=== PATIENT | female | born 2000 | race Caucasian/White ===

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

== ENCOUNTER 2021-06-22 18:48 | Emergency (ER) | payer BC ==
[2021-06-22 18:52] VITALS: TEMP 98.8
[2021-06-22 19:24] VITALS: RESP 18
[2021-06-22] MEDS ORDERED: SODIUM CHLORIDE 0.9% 1,000 ML IV STA (20:28)
[2021-06-22] MEDS ORDERED: ONDANSETRON 4 MG/2 ML VIAL IVP STA (20:28)
[2021-06-22 21:01] LABS: Basophils % (A) 0 %; Eosinophils # (A) 0.1 k/uL (0-0.7); Eosinophils % (A) 1 %; HCT 42.6 % (34.0-46.0); HGB 13.8 gm/dL (11.4-16.0); Lymphocytes # (A) 0.6 k/uL (1.0-4.8); Lymphocytes % (A) 5 %; MCH 26.7 pg (25.0-35.0); MCHC 32.3 g/dL (31.0-37.0); MCV 82.6 fL (80.0-100.0); Mean Platelet Volume 8.1; Monocytes # (A) 0.5 k/uL (0-1.0); Monocytes % (A) 4 %; Neutrophils # (A) 11.1 k/uL (1.3-7.7); Neutrophils % (A) 90 %; Platelet Count 207 k/uL (150-450); RBC 5.16 m/uL (3.80-5.40); RDW 14.5 % (11.5-15.5); WBC 12.4 k/uL (3.8-10.6)
[2021-06-22 21:10] LABS: ALT 26 U/L (4-34); AST 30 U/L (14-36); African American GFR (CKD) >90 (>60 ml/min/1.73 sqM); Albumin 4.5 g/dL (3.5-5.0); Alkaline Phosphatase 130 U/L (38-126); Anion Gap 13 mmol/L; Blood Urea Nitrogen 13 mg/dL (7-17); Calcium 9.3 mg/dL (8.4-10.2); Carbon Dioxide 22 mmol/L (22-30); Chloride 104 mmol/L (98-107); Glucose 107 mg/dL (74-99); Lipase 77 U/L (23-300); Non-African American GFR(CKD) >90 (>60 ml/min/1.73 sqM); Potassium 4.4 mmol/L (3.5-5.1); Sodium 139 mmol/L (137-145); Total Bilirubin 0.8 mg/dL (0.2-1.3); Total Protein 8.7 g/dL (6.3-8.2)
[2021-06-22 22:17] LABS: Amorphous Sediment,Urine Occasional /hpf; Appearance,Urine Cloudy (Clear); Bilirubin,Urine Negative (Negative); Blood,Urine Negative (Negative); Color,Urine Yellow; Glucose,Urine (UA) Negative (Negative); Ketones,Urine Trace (Negative); Leukocyte Esterase,Urine Negative (Negative); Mucus,Urine Many /hpf; Nitrite,Urine Negative (Negative); Protein,Urine 1+ (Negative); RBC,Urine 2 /hpf (0-5); Specific Gravity,Urine 1.029 (1.001-1.035); Squamous Epithelial Cell,Urine 15 /hpf (0-4); Urobilinogen,Urine <2.0 mg/dL (<2.0); WBC,Urine 2 /hpf (0-5)
--- NOTE | 2021-06-22 23:05 | XR ---
EXAMINATION TYPE: XR chest 2V DATE OF EXAM: 06/22/2021 COMPARISON: NONE HISTORY: Chest pain TECHNIQUE: 2 views FINDINGS: There is no heart failure nor confluent pneumonic infiltrate. Heart and mediastinum are nor mal. There is no pleural effusion. Bony thorax is intact. IMPRESSION: No cardiopulmonary disease.
[2021-06-22] MEDS ORDERED: KETOROLAC 15 MG/ML 1 ML VIAL IVP STA (23:45)
[2021-06-22 23:47] VITALS: PULSE 88
--- NOTE | 2021-06-23 00:20 | ED ---
General Adult HPI - General Chief complaint: Nausea/Vomiting/Diarrhea Stated complaint: vomiting blood/chest pain Time Seen by Provider: 06/22/21 19:58 Source: patient, RN notes reviewed Mode of arrival: ambulatory Limitations: no limitations - History of Present Illness Initial comments: 21-year-old female presents to the emergency department for evaluation of nausea, vomiting, and diarrhea, onset last night. Complains of epigastric pain and chest tightness, onset this evening. Has not taken anything to treat her symptoms. Uncertain of whether or not she has had a fever. Denies any known sick contacts. No cough, congestion, nasal drainage, shortness of breath, difficulty breathing, dysuria, or hematuria. - Related Data Home Medications Medication Instructions Recorded Confirmed Citalopram Hydrobromide [CeleXA] 20 mg PO HS 06/22/21 06/22/21 Ibuprofen [Motrin Ib] 200 mg PO Q8H PRN 06/22/21 06/22/21 LORazepam [Ativan] 1 mg PO BID PRN 06/22/21 06/22/21 Melatonin 5 - 10 mg PO HS PRN 06/22/21 06/22/21 Multivit-Min/Folic Acid/Biotin 133.3 mcg PO DAILY 06/22/21 06/22/21 [Hair, Skin and Nails Softgel] Naproxen Sodium [Aleve] 220 mg PO DAILY PRN 06/22/21 06/22/21 Omeprazole Magnesium [PriLOSEC OTC] 20 mg PO DAILY PRN 06/22/21 06/22/21 Previous Rx's Medication Instructions Recorded Ondansetron Odt [Zofran Odt] 4 mg PO Q8HR PRN #10 tab 06/23/21 Allergies Allergy/AdvReac Type Severity Reaction Status Date / Time Sulfa (Sulfonamide Allergy Severe Anaphylaxis Verified 06/22/21 20:42 Antibiotics) acetaminophen [From Tylenol] Allergy Anaphylaxis Verified 06/22/21 20:42 sulfamethoxazole Allergy Anaphylaxis Verified 06/22/21 20:42 [From Bactrim] trimethoprim [From Bactrim] Allergy Anaphylaxis Verified 06/22/21 20:42 Review of Systems ROS Statement: Those systems with pertinent positive or pertinent negative responses have been documented in the HPI. ROS Other: All systems not noted in ROS Statement are negative. Past Medical History Past Medical History: No Reported History History of Any Multi-Drug Resistant Organisms: None Reported Past Surgical History: No Surgical Hx Reported Additional Past Surgical History / Comment(s): wisdom teeth Past Psychological History: No Psychological Hx Reported Smoking Status: Never smoker Past Alcohol Use History: Occasional Past Drug Use History: None Reported General Exam Limitations: no limitations (Well-developed, well-nourished female in no acute distress. Initial temperature 98.8, pulse 97, respirations 22, blood pressure 161/100, pulse ox 97% on room air.) General appearance: alert, in no apparent distress ENT exam: Present: normal oropharynx, mucous membranes moist Neck exam: Present: normal inspection, full ROM. Absent: tenderness, meningismus, lymphadenopathy Respiratory exam: Present: normal lung sounds bilaterally. Absent: respiratory distress, wheezes, rales, rhonchi, stridor Cardiovascular Exam: Present: regular rate, normal rhythm, normal heart sounds. Absent: systolic murmur, diastolic murmur, rubs, gallop, clicks GI/Abdominal exam: Present: soft, normal bowel sounds. Absent: distended, tenderness, guarding, rebound, rigid Neurological exam: Present: alert, oriented X3 Psychiatric exam: Present: normal affect, normal mood Skin exam: Present: warm, dry, intact Course Vital Signs 06/22/21 06/22/21 06/22/21 18:49 19:22 22:00 Temperature 98.8 F Pulse Rate 97 106 H 92 Respiratory 22 18 18 Rate Blood Pressure 161/100 140/99 142/92 O2 Sat by Pulse 97 97 98 Oximetry 06/22/21 06/23/21 23:45 00:28 Temperature Pulse Rate 88 88 Respiratory 18 18 Rate Blood Pressure 148/95 142/90 O2 Sat by Pulse 98 98 Oximetry Medical Decision Making - Medical Decision Making 21-year-old female with no significant past medical history presents to the emergency department for evaluation of nausea, vomiting, and diarrhea. Upon e xam, patient does appear to be feeling somewhat poorly though is in no acute distress. Vital signs are stable. Patient is afebrile and nontoxic in appearance. Abdomen is soft and nontender to the touch. Bowel sounds are active. Patient does complain of chest tightness intermittent in nature. She is not experiencing any shortness of breath or difficulty breathing. EKG was obtained and shows sinus rhythm. Chest x-ray is negative. Laboratory studies to reveal a slightly elevated white blood cell count at 12.4. She does have trace ketones in her urine. Patient was given a liter of IV fluids, Zofran, and Toradol with significant improvement. She will be discharged home with a prescription for Zofran to take as needed. Return parameters were discussed in detail. Patient verbalizes understanding and agrees with this plan. Attending: DR. Mckenzie. - Lab Data Result diagrams: 06/22/21 20:58 06/22/21 20:58 Lab Results 06/22/21 06/22/21 06/22/21 Range/Units 20:58 20:58 20:58 WBC 12.4 H (3.8-10.6) k/uL RBC 5.16 (3.80-5.40) m/uL Hgb 13.8 (11.4-16.0) gm/dL Hct 42.6 (34.0-46.0) % MCV 82.6 (80.0-100.0) fL MCH 26.7 (25.0-35.0) pg MCHC 32.3 (31.0-37.0) g/dL RDW 14.5 (11.5-15.5) % Plt Count 207 (150-450) k/uL MPV 8.1 Neutrophils % 90 % Lymphocytes % 5 % Monocytes % 4 % Eosinophils % 1 % Basophils % 0 % Neutrophils # 11.1 H (1.3-7.7) k/uL Lymphocytes # 0.6 L (1.0-4.8) k/uL Monocytes # 0.5 (0-1.0) k/uL Eosinophils # 0.1 (0-0.7) k/uL Basophils # 0.0 (0-0.2) k/uL Sodium 139 (137-145) mmol/L Potassium 4.4 (3.5-5.1) mmol/L Chloride 104 (98-107) mmol/L Carbon Dioxide 22 (22-30) mmol/L Anion Gap 13 mmol/L BUN 13 (7-17) mg/dL Creatinine 0.73 (0.52-1.04) mg/dL Est GFR (CKD-EPI)AfAm >90 (>60 ml/min/1.73 sqM) Est GFR (CKD-EPI)NonAf >90 (>60 ml/min/1.73 sqM) Glucose 107 H (74-99) mg/dL Calcium 9.3 (8.4-10.2) mg/dL Total Bilirubin 0.8 (0.2-1.3) mg/dL AST 30 (14-36) U/L ALT 26 (4-34) U/L Alkaline Phosphatase 130 H (38-126) U/L Total Protein 8.7 H (6.3-8.2) g/dL Albumin 4.5 (3.5-5.0) g/dL Lipase 77 (23-300) U/L Urine Color Urine Appearance (Clear) Urine pH (5.0-8.0) Ur Specific [place] (1.001-1.035) Urine Protein (Negative) Urine Glucose (UA) (Negative) Urine Ketones (Negative) Urine Blood (Negative) Urine Nitrite (Negative) Urine Bilirubin (Negative) Urine Urobilinogen (<2.0) mg/dL Ur Leukocyte Esterase (Negative) Urine RBC (0-5) /hpf Urine WBC (0-5) /hpf Ur Squamous Epith Cells (0-4) /hpf Amorphous Sediment (None) /hpf Urine Mucus (None) /hpf Urine HCG, Qual Not Detected (Not Detectd) 06/22/21 Range/Units 21:58 WBC (3.8-10.6) k/uL RBC (3.80-5.40) m/uL Hgb (11.4-16.0) gm/dL Hct (34.0-46.0) % MCV (80.0-100.0) fL MCH (25.0-35.0) pg MCHC (31.0-37.0) g/dL RDW (11.5-15.5) % Plt Count (150-450) k/uL MPV Neutrophils % % Lymphocytes % % Monocytes % % Eosinophils % % Basophils % % Neutrophils # (1.3-7.7) k/uL Lymphocytes # (1.0-4.8) k/uL Monocytes # (0-1.0) k/uL Eosinophils # (0-0.7) k/uL Basophils # (0-0.2) k/uL Sodium (137-145) mmol/L Potassium (3.5-5.1) mmol/L Chloride (98-107) mmol/L Carbon Dioxide (22-30) mmol/L Anion Gap mmol/L BUN (7-17) mg/dL Creatinine (0.52-1.04) mg/dL Est GFR (CKD-EPI)AfAm (>60 ml/min/1.73 sqM) Est GFR (CKD-EPI)NonAf (>60 ml/min/1.73 sqM) Glucose (74-99) mg/dL Calcium (8.4-10.2) mg/dL Total Bilirubin (0.2-1.3) mg/dL AST (14-36) U/L ALT (4-34) U/L Alkaline Phosphatase (38-126) U/L Total Protein (6.3-8.2) g/dL Albumin (3.5-5.0) g/dL Lipase (23-300) U/L Urine Color Yellow Urine Appearance Cloudy H (Clear) Urine pH 6.0 (5.0-8.0) Ur Specific [place] 1.029 (1.001-1.035) Urine Protein 1+ H (Negative) Urine Glucose (UA) Negative (Negative) Urine Ketones Trace H (Negative) Urine Blood Negative (Negative) Urine Nitrite Negative (Negative) Urine Bilirubin Negative (Negative) Urine Urobilinogen <2.0 (<2.0) mg/dL Ur Leukocyte Esterase Negative (Negative) Urine RBC 2 (0-5) /hpf Urine WBC 2 (0-5) /hpf Ur Squamous Epith Cells 15 H (0-4) /hpf Amorphous Sediment Occasional H (None) /hpf Urine Mucus Many H (None) /hpf Urine HCG, Qual (Not Detectd) - EKG Data EKG shows normal: sinus rhythm Rate: normal EKG Comments: EKG was obtained at 2102 showing sinus rhythm with borderline right axis deviation and nonspecific T wave abnormality. Ventricular rate 88, NC interval 179, QRS duration 90, QT/QTC 362/408. Interpretation abnormal ECG. - Radiology Data Radiology results: report reviewed, image reviewed Two-view chest x-ray was obtained. Report was reviewed in its entirety. Impression per Dr. Jeffrey is no cardiopulmonary process. Disposition Clinical Impression: Nausea & vomiting, Non-cardiac chest pain Disposition: HOME SELF-CARE Condition: Stable Instructions (If sedation given, give patient instructions): Acute Nausea and Vomiting (ED) Additional Instructions: May take Zofran as needed for nausea. Motrin for headache if needed. Electrolyte solutions such as Gatorade, Powerade, Pedialyte. Follow-up with your PCP for a recheck on Thursday. Return to the emergency department with any new, worsening, or concerning symptoms. Prescriptions: Ondansetron Odt [Zofran Odt] 4 mg PO Q8HR PRN #10 tab PRN Reason: Nausea Is patient prescribed a controlled substance at d/c from ED?: No Referrals: Ventura Whitman MD [Primary Care Provider] - 1-2 days Time of Disposition: 00:20
[2021-06-23 00:30] VITALS: BP 142/90
== END 2021-06-23 00:45 | disposition home or self-care (01) ==
LOC: EC 18:48
DX: R07.89 Other chest pain (principal); R11.2 Nausea with vomiting, unspecified; Z88.2 Allergy status to sulfonamides; Z88.6 Allergy status to analgesic agent
CPT/HCPCS: 99285; 96374; 96375; 36415; 93005; 80053; 83690; 85025; 81001; 81025; 71046; J2405; J1885

== ENCOUNTER 2021-09-23 21:34 | Emergency (ER) | payer BC ==
[2021-09-23 21:42] VITALS: TEMP 98.7
--- NOTE | 2021-09-23 23:01 | XR ---
EXAMINATION TYPE: XR chest 2V DATE OF EXAM: 09/23/2021 COMPARISON: 06/22/2021 HISTORY: Chest pain TECHNIQUE: FINDINGS: Heart and mediastinum are normal. Lungs are clear. Diaphragm is normal. Bony thorax appears normal. IMPRESSION: Normal chest. No change.
[2021-09-23] MEDS ORDERED: KETOROLAC 15 MG/ML 1 ML VIAL IM STA (23:30)
[2021-09-23] MEDS ORDERED: ONDANSETRON ODT 4 MG TAB PO STA (23:30)
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
[2021-09-24 00:21] VITALS: BP 108/76; PULSE 91; RESP 18
[2021-09-24 00:44] LABS: Appearance,Urine Cloudy (Clear); Bilirubin,Urine Negative (Negative); Blood,Urine Negative (Negative); Color,Urine Yellow; Glucose,Urine (UA) Negative (Negative); Ketones,Urine Negative (Negative); Leukocyte Esterase,Urine Negative (Negative); Mucus,Urine Few /hpf; Nitrite,Urine Negative (Negative); Protein,Urine Trace (Negative); RBC,Urine 2 /hpf (0-5); Specific Gravity,Urine 1.032 (1.001-1.035); Squamous Epithelial Cell,Urine 8 /hpf (0-4); Urobilinogen,Urine <2.0 mg/dL (<2.0); WBC,Urine 1 /hpf (0-5)
== END 2021-09-24 00:30 | disposition home or self-care (01) ==
LOC: EC 21:34
DX: R07.89 Other chest pain (principal); Z88.2 Allergy status to sulfonamides; Z88.6 Allergy status to analgesic agent; Y04.0XXA Assault by unarmed brawl or fight, initial encounter
CPT/HCPCS: 93005; 71046; 99285; 96372; J1885; 81001; 81025

== ENCOUNTER 2021-11-03 21:08 | Emergency (ER) | payer BC ==
--- NOTE | 2021-11-03 22:14 | XR ---
EXAMINATION TYPE: XR chest 2V DATE OF EXAM: 11/03/2021 COMPARISON: 09/23/2021 HISTORY: Short of breath TECHNIQUE: FINDINGS: Heart is normal. Lungs are clear. Diaphragm is normal. Bony thorax is intact. IMPRESSION: Normal chest. No change.
[2021-11-03] MEDS ORDERED: BEBTELOVIMAB (EUA) 175 MG/2 ML VIAL IV ONE (23:45)
[2021-11-04] MEDS ORDERED: dexAMETHasone 2 MG TAB PO STA (00:26)
--- NOTE | 2021-11-04 00:26 | ED ---
General Adult HPI - General Chief complaint: Shortness of Breath Stated complaint: Positive at-home covid test w/SOB Time Seen by Provider: 11/03/21 23:50 Source: patient, RN notes reviewed, old records reviewed Mode of arrival: ambulatory Limitations: no limitations - History of Present Illness Initial comments: Patient is a 21-year-old female with past medical history remarkable for obesity, asthma and presents emergency Department with Covid symptoms. This is day 3 or 4 Covid symptoms. Tested positive here in the emergency department. Would like monoclonal antibodies. Symptoms include runny nose, joint pain, mild sore throat. Was vaccinated and boosted for COVID-19. Denies fevers. Denies sick contacts. Presents for further evaluation at this time. - Related Data Home Medications Medication Instructions Recorded Confirmed Citalopram Hydrobromide [CeleXA] 20 mg PO HS 06/22/21 06/22/21 Ibuprofen [Motrin Ib] 200 mg PO Q8H PRN 06/22/21 06/22/21 LORazepam [Ativan] 1 mg PO BID PRN 06/22/21 06/22/21 Melatonin 5 - 10 mg PO HS PRN 06/22/21 06/22/21 Multivit-Min/Folic Acid/Biotin 133.3 mcg PO DAILY 06/22/21 06/22/21 [Hair, Skin and Nails Softgel] Naproxen Sodium [Aleve] 220 mg PO DAILY PRN 06/22/21 06/22/21 Omeprazole Magnesium [PriLOSEC OTC] 20 mg PO DAILY PRN 06/22/21 06/22/21 Previous Rx's Medication Instructions Recorded Ondansetron Odt [Zofran Odt] 4 mg PO Q8HR PRN #10 tab 06/23/21 Albuterol Inhaler [Ventolin Hfa 1 puff INHALATION RT-TID #8 gm 11/04/21 Inhaler] dexAMETHasone [Decadron] 6 mg PO DAILY 4 Days #4 tablet 11/04/21 Allergies Allergy/AdvReac Type Severity Reaction Status Date / Time Sulfa (Sulfonamide Allergy Severe Anaphylaxis Verified 11/03/21 21:55 Antibiotics) acetaminophen [From Tylenol] Allergy Anaphylaxis Verified 11/03/21 21:55 sulfamethoxazole Allergy Anaphylaxis Verified 11/03/21 21:55 [From Bactrim] trimethoprim [From Bactrim] Allergy Anaphylaxis Verified 11/03/21 21:55 Review of Systems ROS Statement: Those systems with pertinent positive or pertinent negative responses have been documented in the HPI. Review of Systems: CONST: Denies fever EYES: Denies blurry vision ENT: Endorses nasal congestion C/V: Denies Chest pain RESP: Denies shortness of breath GI: Denies abdominal pain : Denies dysuria SKIN: Denies rash. MSK: Endorses joint pain. NEURO: Denies headache ROS Other: All systems not noted in ROS Statement are negative. Past Medical History Past Medical History: No Reported History History of Any Multi-Drug Resistant Organisms: None Reported Past Surgical History: No Surgical Hx Reported Additional Past Surgical History / Comment(s): wisdom teeth Past Psychological History: No Psychological Hx Reported Smoking Status: Never smoker Past Alcohol Use History: Occasional Past Drug Use History: None Reported General Exam - General Exam Comments Initial Comments: General: Appears in no acute distress. HEAD: Normal with no signs of head trauma. EYES: EOMI ENT: Hearing grossly intact, normal oropharynx. RESPIRATORY: Clear breath sounds bilaterally. No wheezes, rales, or rhonchi. No hypoxia. No increased work of breathing. C/V: Regular rate and rhythm. S1 and S2 auscultated, no edema, peripheral pulses 2+ and intact throughout ABD: Abd is soft, nontender, nondistended EXT: No obvious deformity SKIN: No rashes or lesions observed on exposed skin. NEURO: Alert and oriented 4. Limitations: no limitations Course Vital Signs 11/03/21 21:50 Temperature 98.7 F Pulse Rate 105 H Respiratory 20 Rate Blood Pressure 166/94 O2 Sat by Pulse 95 Oximetry Medical Decision Making - Medical Decision Making Based on the patient's presentation and physical exam, I do believe she has COVID-19 infection. Covid swab as well as chest x-ray were obtained in triage. Chest x-ray shows no signs of acute cardiopulmonary process. Covid swab is positive. Patient did consent to monoclonal antibodies. Due to her history of asthma, I will provide her with a prescription for Decadron for 4 days as well in addition to a dose tonight. Patient was in agreement this plan. She'll be given an albuterol inhaler. Counseled her on isolation. Recommended she obtain a pulse oximeter monitor her oxygenation. She was in agreement this plan. Patient tolerated the therapy well. She'll be discharged home at this time. I will provide the patient with a prescription for Decadron, albuterol inhaler. I instructed the patient to follow up with their PCP in the next 1-3 days. I explained that the patient should return to the emergency department if they experience any worsening symptoms. Strict return precautions were discussed with the patient. The patient expressed understanding of these instructions. I answered all questions that the patient had. The patient was discharged home in fair condition with their prescriptions and follow up information. - Lab Data Lab Results 11/03/21 Range/Units 21:57 Coronavirus (PCR) Detected A (Not Detectd) Disposition Clinical Impression: COVID-19 virus infection Disposition: HOME SELF-CARE Condition: Fair Instructions (If sedation given, give patient instructions): COVID-19 (Coronavirus Disease 2019) (ED) Prescriptions: dexAMETHasone [Decadron] 6 mg PO DAILY 4 Days #4 tablet Albuterol Inhaler [Ventolin Hfa Inhaler] 1 puff INHALATION RT-TID #8 gm Is patient prescribed a controlled substance at d/c from ED?: No Referrals: Ventura Whitman MD [Primary Care Provider] - 1-2 days Time of Disposition: 00:15
[2021-11-04 01:16] VITALS: BP 148/85; PULSE 93; RESP 22; TEMP 98
== END 2021-11-04 01:05 | disposition home or self-care (01) ==
LOC: EC 21:08
DX: U07.1 COVID-19 (principal); J45.909 Unspecified asthma, uncomplicated; E66.9 Obesity, unspecified; Z88.0 Allergy status to penicillin; Z88.2 Allergy status to sulfonamides; Z88.6 Allergy status to analgesic agent; Z79.51 Long term (current) use of inhaled steroids
CPT/HCPCS: 87635; 71046; 99283; J8540; Q0222

== ENCOUNTER 2022-01-02 17:40 | Emergency (ER) | payer BC, OTHER ==
[2022-01-02 17:54] VITALS: TEMP 98
[2022-01-02] MEDS ORDERED: KETOROLAC 15 MG/ML 1 ML VIAL IM STA (17:55)
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
[2022-01-02 19:07] VITALS: BP 146/86; PULSE 80; RESP 20
== END 2022-01-02 19:07 | disposition home or self-care (01) ==
LOC: EC 17:40
DX: R68.84 Jaw pain (principal); R51.9 Headache, unspecified; Z88.2 Allergy status to sulfonamides; Z88.6 Allergy status to analgesic agent; Y04.0XXA Assault by unarmed brawl or fight, initial encounter
CPT/HCPCS: 70110; 99283; 96372; J1885

== ENCOUNTER 2022-04-06 18:14 | Emergency (ER) | payer OTHER ==
[2022-04-06 18:25] VITALS: BP 130/84; PULSE 83; RESP 16; TEMP 98
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
== END 2022-04-06 19:21 | disposition home or self-care (01) ==
LOC: EC 18:14
DX: T75.89XA Other specified effects of external causes, initial encounter (principal); Z88.2 Allergy status to sulfonamides; Z88.6 Allergy status to analgesic agent; W46.1XXA Contact with contaminated hypodermic needle, initial encounter
CPT/HCPCS: 99282

== ENCOUNTER 2022-04-08 01:47 | Emergency (ER) | payer SELFPAY ==
[2022-04-08 01:52] VITALS: BP 152/65; PULSE 96; RESP 20; TEMP 98.3
[2022-04-08] MEDS ORDERED: ALBUTEROL HFA INHALER INHALATION STA (02:11)
[2022-04-08] MEDS ORDERED: DEXAMETHASONE SOD PHOSPHATE 10 MG/ML 1 ML VIAL IM STA (02:11)
--- NOTE | 2022-04-08 02:14 | ED ---
URI HPI - General Chief Complaint: Upper Respiratory Infection Stated Complaint: SOB COUGH Time Seen by Provider: 04/08/22 01:58 Source: patient, RN notes reviewed Mode of arrival: ambulatory Limitations: no limitations - History of Present Illness Initial Comments: This is a pleasant 22-year-old female with a history of asthma. States she's been taking her inhaler more recently over the past 3 days. She has had a productive cough, headache, fatigue, body aches, and backache. recent travel or known exposures. Patient denies any known fever. Patient has a history of polycystic ovarian syndrome and asthma. No neck stiffness, no fever or chills, no changes in vision or hearing, no sore throat or difficulty with speech, no neck pain, PATIENT states she was wheezing earlier, no abdominal pain, no nausea or vomiting, no changes in urination or bowel movements, no numbness or tingling, no extremity pain, no skin rashes or lesions. Past medical, surgical, social, and family history reviewed. MD Complaint: cough - Related Data Home Medications Medication Instructions Recorded Confirmed Citalopram Hydrobromide [CeleXA] 20 mg PO HS 06/22/21 06/22/21 Ibuprofen [Motrin Ib] 200 mg PO Q8H PRN 06/22/21 06/22/21 LORazepam [Ativan] 1 mg PO BID PRN 06/22/21 06/22/21 Melatonin 5 - 10 mg PO HS PRN 06/22/21 06/22/21 Multivit-Min/Folic Acid/Biotin 133.3 mcg PO DAILY 06/22/21 06/22/21 [Hair, Skin and Nails Softgel] Naproxen Sodium [Aleve] 220 mg PO DAILY PRN 06/22/21 06/22/21 Omeprazole Magnesium [PriLOSEC OTC] 20 mg PO DAILY PRN 06/22/21 06/22/21 Previous Rx's Medication Instructions Recorded Ondansetron Odt [Zofran Odt] 4 mg PO Q8HR PRN #10 tab 06/23/21 Albuterol Inhaler [Ventolin Hfa 1 puff INHALATION RT-TID #8 gm 11/04/21 Inhaler] dexAMETHasone [Decadron] 6 mg PO DAILY 4 Days #4 tablet 11/04/21 Ibuprofen [Motrin] 800 mg PO Q6HR #30 tab 01/02/22 Albuterol Inhaler [Ventolin Hfa 2 puff INHALATION Q4HR PRN #1 each 04/08/22 Inhaler] Ibuprofen [Motrin] 600 mg PO Q8HR PRN #30 tab 04/08/22 Oseltamivir [Tamiflu] 75 mg PO Q12HR #9 cap 04/08/22 Allergies Allergy/AdvReac Type Severity Reaction Status Date / Time Sulfa (Sulfonamide Allergy Severe Anaphylaxis Verified 04/08/22 01:52 Antibiotics) acetaminophen [From Tylenol] Allergy Anaphylaxis Verified 04/08/22 01:52 sulfamethoxazole Allergy Anaphylaxis Verified 04/08/22 01:52 [From Bactrim] trimethoprim [From Bactrim] Allergy Anaphylaxis Verified 04/08/22 01:52 Review of Systems ROS Statement: Those systems with pertinent positive or pertinent negative responses have been documented in the HPI. ROS Other: All systems not noted in ROS Statement are negative. Past Medical History Past Medical History: Asthma Additional Past Medical History / Comment(s): PCOS, Endometrosis History of Any Multi-Drug Resistant Organisms: None Reported Past Surgical History: No Surgical Hx Reported Additional Past Surgical History / Comment(s): wisdom teeth Past Psychological History: No Psychological Hx Reported Smoking Status: Never smoker Past Alcohol Use History: Occasional Past Drug Use History: None Reported General Exam - General Exam Comments Initial Comments: Vital signs stable aside from blood pressure 152/65. Pulse oximetry 100% on room air.patient appears to be mildly ill but not toxic. Limitations: no limitations General appearance: obese Head exam: Present: atraumatic, normocephalic, normal inspection Eye exam: Present: normal appearance, PERRL, EOMI. Absent: scleral icterus, conjunctival injection, periorbital swelling ENT exam: Present: normal exam, normal oropharynx, mucous membranes moist, TM's normal bilaterally, normal external ear exam. Absent: mucous membranes dry Neck exam: Present: normal inspection, full ROM. Absent: tenderness, meningismus, lymphadenopathy Respiratory exam: Present: normal lung sounds bilaterally, other (No wheezing or other adventitious lung sounds). Absent: respiratory distress, wheezes, rales, rhonchi, stridor, chest wall tenderness, accessory muscle use, decreased breath sounds, prolonged expiratory Cardiovascular Exam: Present: regular rate, normal rhythm, normal heart sounds. Absent: systolic murmur, diastolic murmur, rubs, gallop, clicks GI/Abdominal exam: Present: soft, normal bowel sounds. Absent: distended, tenderness, guarding, rebound, rigid Extremities exam: Present: normal inspection, full ROM, normal capillary refill. Absent: tenderness, pedal edema, joint swelling, calf tenderness Back exam: Present: normal inspection Neurological exam: Present: alert, oriented X3, CN II-XII intact Psychiatric exam: Present: normal affect, normal mood Skin exam: Present: warm, dry, intact, normal color. Absent: rash Course Vital Signs 04/08/22 01:49 Temperature 98.3 F Pulse Rate 96 Respiratory 20 Rate Blood Pressure 152/65 O2 Sat by Pulse 100 Oximetry Medical Decision Making - Medical Decision Making Differential diagnosis: COVID-19, influenza, RSV, other viral etiology. Given the patient's presentation, afebrile state, and 100% oxygen saturation and I believe bacterial pneumonia is unlikely. Patient states she was wheezing earlier. Mild asthma exacerbation possible. Ordered chest x-ray, albuterol inhaler, dexamethasone IM. Plan for reevaluation Patient, positive for influenza A. Patient is within the first 48 hours. Discussed pros Of Tamiflu. It did elect to give this medication after discussion. Patient states she feels better after taking the 2 puffs of albuterol. We'll have her use this every 4 hours. I independent interpretation of the 2 view x-ray of the chest reveals no acute pathology. Radiology interpretation is delayed. Patient was told to return to the ER for any signs or symptoms worsen. Told to return immediately if any other problems arise. All questions answered. Treatment plan discussed. Patient in agreement Every effort has been made to ensure accuracy of this dictation. However, due to the limitations of electronic medical records and dictation devices, errors in charting still occur. Outpatient Surgery Rn Dr. Mckenzie - Lab Data Lab Results 04/08/22 Range/Units 02:10 Influenza Type A (PCR) Detected A (Not Detectd) Influenza Type B (PCR) Not Detected (Not Detectd) RSV (PCR) Not Detected (Not Detectd) SARS-CoV-2 (PCR) Not Detected (Not Detectd) - Radiology Data Radiology results: image reviewed Disposition Clinical Impression: Influenza A Disposition: HOME SELF-CARE Condition: Good Instructions (If sedation given, give patient instructions): Influenza (ED) Additional Instructions: Follow-up with your regular physician as directed. Return to the ER immediately if any symptoms worsen, new symptoms arise, or any other problems develop. Prescriptions: Ibuprofen [Motrin] 600 mg PO Q8HR PRN #30 tab PRN Reason: Pain Oseltamivir [Tamiflu] 75 mg PO Q12HR #9 cap Albuterol Inhaler [Ventolin Hfa Inhaler] 2 puff INHALATION Q4HR PRN #1 each PRN Reason: Wheezing Is patient prescribed a controlled substance at d/c from ED?: No Referrals: None,Stated [REFERRING] - 1-2 days Time of Disposition: 03:50
[2022-04-08] MEDS ORDERED: IBUPROFEN 600 MG TAB PO STA (03:38)
[2022-04-08] MEDS ORDERED: OSELTAMIVIR 75 MG CAP PO STA (03:48)
--- NOTE | 2022-04-08 03:59 | XR ---
EXAMINATION TYPE: XR chest 2V DATE OF EXAM: 04/08/2022 COMPARISON: 11/03/2021 HISTORY: Cough TECHNIQUE: FINDINGS: Heart is normal. Lungs are clear. Diaphragm is normal. Bony thorax appears normal. IMPRESSION: Normal chest. No change.
== END 2022-04-08 04:21 | disposition home or self-care (01) ==
LOC: EC 01:47
DX: J10.1 Influenza due to other identified influenza virus with other respiratory manifestations (principal); J45.909 Unspecified asthma, uncomplicated; Z88.2 Allergy status to sulfonamides; Z88.6 Allergy status to analgesic agent; Z20.822 Contact with and (suspected) exposure to COVID-19
CPT/HCPCS: 99285; 96372; 94640; 87636; 71046; J1100

== ENCOUNTER 2023-03-09 01:03 | Emergency (ER) | payer BC ==
[2023-03-09 01:33] VITALS: BP 122/88; TEMP 98.3
[2023-03-09] MEDS ORDERED: IPRATROPIUM-ALBUTEROL 3 ML NEB INHALATION STA (01:33)
[2023-03-09] MEDS ORDERED: methylPREDNISolone SOD SUCCI 125 MG/2 ML VIAL IM ONE (01:33)
--- NOTE | 2023-03-09 02:43 | ED ---
URI HPI - General Chief Complaint: Upper Respiratory Infection Stated Complaint: Cough, Shortness breath, Asthma Time Seen by Provider: 03/09/23 01:10 Source: patient Mode of arrival: ambulatory Limitations: no limitations - History of Present Illness Initial Comments: 23-year-old female presenting with chief complaint of shortness of breath. Anu ent has history of asthma. She has been taking her albuterol inhaler at home which has not been alleviating her symptoms. Patient also has a progressively worsening cough with some productive sputum. No fevers or chills. No congestion or ear pain. She does admit to mild throat discomfort which she attributes to her cough. No chest pain. No palpitations. No abdominal pain, nausea, vomiting, numbness, tingling, weakness. - Related Data Home Medications Medication Instructions Recorded Confirmed Citalopram Hydrobromide [CeleXA] 20 mg PO HS 06/22/21 06/22/21 Ibuprofen [Motrin Ib] 200 mg PO Q8H PRN 06/22/21 06/22/21 LORazepam [Ativan] 1 mg PO BID PRN 06/22/21 06/22/21 Melatonin 5 - 10 mg PO HS PRN 06/22/21 06/22/21 Multivit-Min/Folic Acid/Biotin 133.3 mcg PO DAILY 06/22/21 06/22/21 [Hair, Skin and Nails Softgel] Naproxen Sodium [Aleve] 220 mg PO DAILY PRN 06/22/21 06/22/21 Omeprazole Magnesium [PriLOSEC OTC] 20 mg PO DAILY PRN 06/22/21 06/22/21 Previous Rx's Medication Instructions Recorded Ondansetron Odt [Zofran Odt] 4 mg PO Q8HR PRN #10 tab 06/23/21 Albuterol Inhaler [Ventolin Hfa 1 puff INHALATION RT-TID #8 gm 11/04/21 Inhaler] dexAMETHasone [Decadron] 6 mg PO DAILY 4 Days #4 tablet 11/04/21 Ibuprofen [Motrin] 800 mg PO Q6HR #30 tab 01/02/22 Albuterol Inhaler [Ventolin Hfa 2 puff INHALATION Q4HR PRN #1 each 04/08/22 Inhaler] Ibuprofen [Motrin] 600 mg PO Q8HR PRN #30 tab 04/08/22 Oseltamivir [Tamiflu] 75 mg PO Q12HR #9 cap 04/08/22 Amoxic-Pot Clav 875-125Mg 1 tab PO BID 7 Days #14 tab 10/23/22 [Augmentin 875-125] predniSONE 50 mg PO DAILY 5 Days #5 tab 03/09/23 Allergies Allergy/AdvReac Type Severity Reaction Status Date / Time Sulfa (Sulfonamide Allergy Severe Anaphylaxis Verified 04/08/22 01:52 Antibiotics) acetaminophen [From Tylenol] Allergy Anaphylaxis Verified 04/08/22 01:52 Fish Containing Products Allergy Anaphylaxis Verified 10/22/22 23:28 [Fish] shellfish derived Allergy Anaphylaxis Verified 03/09/23 01:07 sulfamethoxazole Allergy Anaphylaxis Verified 04/08/22 01:52 [From Bactrim] trimethoprim [From Bactrim] Allergy Anaphylaxis Verified 04/08/22 01:52 Review of Systems ROS Statement: Those systems with pertinent positive or pertinent negative responses have been documented in the HPI. ROS Other: All systems not noted in ROS Statement are negative. Past Medical History Past Medical History: Asthma Additional Past Medical History / Comment(s): PCOS History of Any Multi-Drug Resistant Organisms: None Reported Past Surgical History: No Surgical Hx Reported Additional Past Surgical History / Comment(s): wisdom teeth Past Psychological History: No Psychological Hx Reported Smoking Status: Never smoker Past Alcohol Use History: Occasional Past Drug Use History: None Reported General Exam Limitations: no limitations General appearance: alert, in no apparent distress Head exam: Present: atraumatic, normocephalic, normal inspection Eye exam: Present: normal appearance, EOMI Neck exam: Present: normal inspection, full ROM Respiratory exam: Present: wheezes. Absent: respiratory distress, rales, rhonchi, stridor Cardiovascular Exam: Present: regular rate, normal rhythm, normal heart sounds. Absent: systolic murmur, diastolic murmur, rubs, gallop, clicks Neurological exam: Present: alert, oriented X3 Psychiatric exam: Present: normal affect, normal mood Skin exam: Present: warm, dry, intact, normal color. Absent: rash Course Vital Signs 03/09/23 03/09/23 03/09/23 01:04 01:19 01:41 Temperature 98.3 F Pulse Rate 88 94 77 Respiratory 20 20 Rate Blood Pressure 122/88 O2 Sat by Pulse 99 98 Oximetry 03/09/23 03/09/23 01:47 02:28 Temperature Pulse Rate 84 89 Respiratory 18 Rate Blood Pressure O2 Sat by Pulse 99 Oximetry Medical Decision Making - Medical Decision Making Was pt. sent in by a medical professional or institution (, PA, MANUFACTURING MACHINE OPERATOR, urgent care, hospital, or correction...) When possible be specific @ -No Did you speak to anyone other than the patient for history (EMS, parent, family, police, friend...)? What history was obtained from this source @ -No Did you review nursing and triage notes (agree or disagree)? Why? @ -I reviewed and agree with nursing and triage notes Were old charts reviewed (outside hosp., previous admission, EMS record, old EKG, old radiological studies, urgent care reports/EKG's, correction records)? Report findings @ -No old charts were reviewed Differential Diagnosis (chest pain, altered mental status, abdominal pain women, abdominal pain men, vaginal bleeding, weakness, fever, dyspnea, syncope, headache, dizziness, GI bleed, back pain, seizure, CVA, palpatations, mental health, musculoskeletal)? @ -MDM Differential Dyspnea: Coronary syndrome, arrhythmia, tamponade, asthma, COPD, pulmonary embolism, pneumonia, pneumothorax, pulmonary effusion, anaphylaxis, diabetic ketoacidosis, flailed chest, pulmonary contusion, diaphragmatic rupture, anemia, neuromuscular this is not meant to be an all-inclusive list. EKG interpreted by me (3pts min.). @ -As above X-rays interpreted by me (1pt min.). @ -None done CT interpreted by me (1pt min.). @ -None done U/S interpreted by me (1pt. min.). @ -None done What testing was considered but not performed or refused? (CT, X-rays, U/S, labs)? Why? @ -None What meds were considered but not given or refused? Why? @ -None Did you discuss the management of the patient with other professionals (professionals i.e. , MARIAN, MANUFACTURING MACHINE OPERATOR, lab, RT, psych nurse, mental health social worker, cna ltc, teacher, parole hearing officer, immigration case worker)? Give summary @ -No Was smoking cessation discussed for >3mins.? @ -No Was critical care preformed (if so, how long)? @ -No Were there social determinants of health that impacted care today? How? (Homelessness, low income, unemployed, alcoholism, drug addiction, transportation, low edu. Level, literacy, decrease access to med. care, snf, rehab)? @ -No Was there de-escalation of care discussed even if they declined (Discuss DNR or withdrawal of care, Hospice)? DNR status @ -No What co-morbidities impacted this encounter? (DM, HTN, Smoking, COPD, CAD, Cancer, CVA, ARF, Chemo, Hep., AIDS, mental health diagnosis, sleep apnea, morbid obesity)? @ -Asthma Was patient admitted / discharged? Hospital course, mention meds given and route, prescriptions, significant lab abnormalities, going to OR and other pertinent info. @ -23-year-old female with history of asthma presenting with chief complaint of cough and shortness of breath. On physical examination expiratory wheezes are heard on auscultation. Patient is treated with a DuoNeb and Solu-Medrol 125 mg IM. On reassessment she reports improvement in her symptoms. Chest x-rays negative for acute process. Patient will be treated for asthma exacerbation with prednisone 50 mg at home. Continue albuterol inhaler. Follow-up with PCP. Report back to ER with any new or worsening symptoms. Discussed return parameters and answered all questions. Patient conveyed verbal understanding and agreed to the plan. I discussed this case in detail with my attending Dr. Gan Undiagnosed new problem with uncertain prognosis? @ -No Drug Therapy requiring intensive monitoring for toxicity (Heparin, Nitro, Insulin, Cardizem)? @ -No Were any procedures done? @ -No Diagnosis/symptom? @ -Asthma exacerbation Acute, or Chronic, or Acute on Chronic? @ -Acute Uncomplicated (without systemic symptoms) or Complicated (systemic symptoms)? @ -Uncomplicated Side effects of treatment? @ -No Exacerbation, Progression, or Severe Exacerbation? @ -Asthma exacerbation Poses a threat to life or bodily function? How? (Chest pain, [place], [place], pneumonia, PE, COPD, DKA, ARF, appy, cholecystitis, CVA, Diverticulitis, Homicidal, Suicidal, threat to staff... and all critical care pts) @ -Low likelihood Disposition Clinical Impression: Asthma exacerbation Disposition: HOME SELF-CARE Condition: Good Instructions (If sedation given, give patient instructions): Asthma (ED) Additional Instructions: Follow-up with PCP. Report back to ER with any new or worsening symptoms. Take medication as prescribed. Continue taking albuterol inhaler as prescribed. Prescriptions: predniSONE 50 mg PO DAILY 5 Days #5 tab Is patient prescribed a controlled substance at d/c from ED?: No Referrals: Ventura Whitman MD [Primary Care Provider] - 1-2 days Time of Disposition: 02:43
[2023-03-09 03:11] VITALS: PULSE 87; RESP 16
--- NOTE | 2023-03-09 03:56 | XR ---
EXAM: XR Chest, 2 Views CLINICAL HISTORY: ITS.REASON XR Reason: SOB TECHNIQUE: Frontal and lateral views of the chest. COMPARISON: 04/08/2022 FINDINGS: Lungs: Unremarkable. No consolidation. Pleural space: Unremarkable. No pneumothorax. Heart: Unremarkable. No cardiomegaly. Mediastinum: Unremarkable. Normal mediastinal contour. Bones/joints: Unremarkable. No acute fracture. IMPRESSION: Normal chest x-rays.
== END 2023-03-09 03:08 | disposition home or self-care (01) ==
LOC: EC 01:03
DX: J45.901 Unspecified asthma with (acute) exacerbation (principal); Z88.2 Allergy status to sulfonamides; Z91.013 Allergy to seafood; Z88.1 Allergy status to other antibiotic agents; Z88.8 Allergy status to other drugs, medicaments and biological substances; Z79.899 Other long term (current) drug therapy
CPT/HCPCS: 94640; 71046; 99284; 96372; J2930

== ENCOUNTER → 2023-05-13 | Outpatient (CLI) | payer BC ==
[2023-05-14 02:34] LABS: Basophils # (A) 0.06 X 10*3/uL (0.00-0.10); Basophils % (A) 0.6 %; Eosinophils # (A) 0.17 X 10*3/uL (0.04-0.35); Eosinophils % (A) 1.8 %; HCT 38.2 % (37.2-46.3); HGB 11.8 g/dL (12.0-15.0); Lymphocytes # (A) 2.69 X 10*3/uL (0.90-5.00); Lymphocytes % (A) 27.7 %; MCH 23.9 pg (27.0-32.0); MCHC 30.9 g/dL (32.0-37.0); MCV 77.3 FL (80.0-97.0); Mean Platelet Volume 10.9 FL (9.5-12.2); Monocytes # (A) 0.77 X 10*3/uL (0.20-1.00); Monocytes % (A) 7.9 %; NRBC Per 100 WBC 0 X 10*3/uL (0.00-0.01); Neutrophils # (A) 5.98 X 10*3/uL (1.80-7.70); Neutrophils % (A) 61.7 %; Platelet Count 202 X 10*3/uL (140-440); RBC 4.94 X 10*6/uL (4.10-5.20); RDW 14.9 % (11.5-14.5)
[2023-05-14 03:08] LABS: ALT 25 U/L (8-44); AST 25 U/L (13-35); Albumin 4.1 g/dL (3.8-4.9); Albumin/Globulin Ratio 1.28 Ratio (1.60-3.17); Alkaline Phosphatase 103 U/L (41-126); BUN/Creat Ratio 12.86 Ratio (12.00-20.00); Calcium 9.4 mg/dL (8.7-10.3); Carbon Dioxide 23.3 mmol/L (21.6-31.8); Chloride 107 mmol/L (96-109); Chol/HDL Ratio 5.24 Ratio; Globulin 3.2 g/dL (1.6-3.3); Glucose 109 mg/dL (70-110); LDL Cholesterol,Calculated 116.6 mg/dL (0.0-131.0); Potassium 3.9 mmol/L (3.5-5.5); Sodium 141 mmol/L (135-145); T4, Free (Free Thyroxine) 1.02 ng/dL (0.80-1.80); Total Bilirubin <0.2 mg/dL (0.3-1.2); Total Protein 7.3 g/dL (6.2-8.2)
== END | disposition home or self-care (01) ==
LOC: LABMAIN 15:36
PROVIDERS: ATTEND Family Medicine
DX: F41.1 Generalized anxiety disorder (principal); R10.9 Unspecified abdominal pain; R19.7 Diarrhea, unspecified; R14.0 Abdominal distension (gaseous); R11.0 Nausea
CPT/HCPCS: 80053; 80061; 84439; 84443; 85025

== ENCOUNTER 2023-08-05 07:33 | Emergency (ER) | payer BC, MEDICAID ==
--- NOTE | 2023-08-05 08:18 | ED ---
General Adult HPI - General Chief complaint: Abdominal Pain Stated complaint: abd pain Time Seen by Provider: 08/05/23 07:52 Source: patient, RN notes reviewed, old records reviewed Mode of arrival: ambulatory Limitations: no limitations - History of Present Illness Initial comments: Patient is a 23-year-old female who presents emergency department complaining of abdominal pain. Started yesterday after dinner. States it is epigastric in na ture with radiation upwards and feels like a burning sensation. Associate with nausea and had nonbilious nonbloody emesis. Denies any other chest pain or shortness of breath. Has a history of asthma that is well-controlled. Denies any history of abdominal surgeries. Denies any urinary complaints. States she does take Motrin frequently when she is on her menstrual cycle which she is currently on. Denies any other acute complaints at this time. Is concerned it may be an ulcer. Presents for further evaluation at this time. - Related Data Home Medications Medication Instructions Recorded Confirmed Citalopram Hydrobromide [CeleXA] 20 mg PO HS 06/22/21 06/22/21 Ibuprofen [Motrin Ib] 200 mg PO Q8H PRN 06/22/21 06/22/21 LORazepam [Ativan] 1 mg PO BID PRN 06/22/21 06/22/21 Melatonin 5 - 10 mg PO HS PRN 06/22/21 06/22/21 Multivit-Min/Folic Acid/Biotin 133.3 mcg PO DAILY 06/22/21 06/22/21 [Hair, Skin and Nails Softgel] Naproxen Sodium [Aleve] 220 mg PO DAILY PRN 06/22/21 06/22/21 Omeprazole Magnesium [PriLOSEC OTC] 20 mg PO DAILY PRN 06/22/21 06/22/21 Previous Rx's Medication Instructions Recorded Ondansetron Odt [Zofran Odt] 4 mg PO Q8HR PRN #10 tab 06/23/21 Albuterol Inhaler [Ventolin Hfa 1 puff INHALATION RT-TID #8 gm 11/04/21 Inhaler] dexAMETHasone [Decadron] 6 mg PO DAILY 4 Days #4 tablet 11/04/21 Ibuprofen [Motrin] 800 mg PO Q6HR #30 tab 01/02/22 Albuterol Inhaler [Ventolin Hfa 2 puff INHALATION Q4HR PRN #1 each 04/08/22 Inhaler] Ibuprofen [Motrin] 600 mg PO Q8HR PRN #30 tab 04/08/22 Oseltamivir [Tamiflu] 75 mg PO Q12HR #9 cap 04/08/22 Amoxic-Pot Clav 875-125Mg 1 tab PO BID 7 Days #14 tab 10/23/22 [Augmentin 875-125] predniSONE 50 mg PO DAILY 5 Days #5 tab 03/09/23 Famotidine [Pepcid] 20 mg PO DAILY 14 Days #14 tablet 08/05/23 Allergies Allergy/AdvReac Type Severity Reaction Status Date / Time Sulfa (Sulfonamide Allergy Severe Anaphylaxis Verified 08/05/23 07:46 Antibiotics) Fish Containing Products Allergy Anaphylaxis Verified 08/05/23 07:46 [Fish] shellfish derived Allergy Anaphylaxis Verified 08/05/23 07:46 sulfamethoxazole Allergy Anaphylaxis Verified 08/05/23 07:46 [From Bactrim] trimethoprim [From Bactrim] Allergy Anaphylaxis Verified 08/05/23 07:46 Review of Systems ROS Statement: Those systems with pertinent positive or pertinent negative responses have been documented in the HPI. Review of Systems: CONST: Denies fever EYES: Denies blurry vision ENT: Denies nasal congestion C/V: Denies Chest pain RESP: Denies shortness of breath GI: Endorses abdominal pain : Denies dysuria SKIN: Denies rash. MSK: Denies joint pain. NEURO: Denies headache ROS Other: All systems not noted in ROS Statement are negative. Past Medical History Past Medical History: Asthma Additional Past Medical History / Comment(s): PCOS History of Any Multi-Drug Resistant Organisms: None Reported Past Surgical History: No Surgical Hx Reported Additional Past Surgical History / Comment(s): wisdom teeth Past Psychological History: No Psychological Hx Reported Smoking Status: Never smoker Past Alcohol Use History: Occasional Past Drug Use History: None Reported General Exam - General Exam Comments Initial Comments: General: Appears in mild discomfort secondary to abdominal pain. HEAD: Normal with no signs of head trauma. EYES: PERRLA, EOMI, conjunctiva normal, no discharge. ENT: Hearing grossly intact, normal oropharynx. RESPIRATORY: Clear breath sounds bilaterally. No wheezes, rales, or rhonchi. C/V: Regular rate and rhythm. S1 and S2 auscultated, no edema, peripheral pulses 2+ and intact throughout ABD: Abdomen is soft, nondistended. Mild tenderness to palpation epigastric region. No guarding. No rebound tenderness. No flank pain. No peritoneal signs. EXT: Normal range of motion, no obvious deformity SKIN: No rashes or lesions observed on exposed skin. NEURO: Alert and oriented x 4. Limitations: no limitations Course Vital Signs 08/05/23 08/05/23 08/05/23 07:43 10:04 11:01 Temperature 97.5 F L 98 F 98.2 F Pulse Rate 68 65 62 Respiratory 18 18 18 Rate Blood Pressure 133/85 176/73 137/82 O2 Sat by Pulse 98 100 100 Oximetry Medical Decision Making - Medical Decision Making Was pt. sent in by a medical professional or institution (, PA, FAST FOOD SERVICES MANAGER, urgent care, hospital, or half-way...) When possible be specific @ -No Did you speak to anyone other than the patient for history (EMS, parent, family, police, friend...)? What history was obtained from this source @ -No Did you review nursing and triage notes (agree or disagree)? Why? @ -I reviewed and agree with nursing and triage notes Were old charts reviewed (outside hosp., previous admission, EMS record, old EKG, old radiological studies, urgent care reports/EKG's, half-way records)? Report findings @ -Old charts reviewed Differential Diagnosis (chest pain, altered mental status, abdominal pain women, abdominal pain men, vaginal bleeding, weakness, fever, dyspnea, syncope, headache, dizziness, GI bleed, back pain, seizure, CVA, palpatations, mental health, musculoskeletal)? @ -Differential Abdominal Pain Women: Appendicitis, Cholecystitis, diverticulosis, ischemic bowel, pancreatitis, hepatitis, UTI, gastroenteritis, AAA, incarcerated hernia, bowel obstruction, constipation, inflammatory bowel, hepatitis, peptic ulcer disease, splenic infarction, perforated viscus, vulvitis, ovarian torsion, PID, kidney stone, placenta abruption, this is not meant to be an all-inclusive list EKG interpreted by me (3pts min.). @ -As above X-rays interpreted by me (1pt min.). @ -Chest x-ray reveals no obvious acute cardiopulmonary process. CT interpreted by me (1pt min.). @ -None done U/S interpreted by me (1pt. min.). @ -Gall bladder ultrasound negative for any obvious gallbladder pathology. What testing was considered but not performed or refused? (CT, X-rays, U/S, labs)? Why? @ -None What meds were considered but not given or refused? Why? @ -None Did you discuss the management of the patient with other professionals (professionals i.e. Dr., PA, FAST FOOD SERVICES MANAGER, lab, RT, psych nurse, certified social workers in health care, jewelry sales associate, teacher, court registry officer, case assistant)? Give summary @ -No Was smoking cessation discussed for >3mins.? @ -No Was critical care preformed (if so, how long)? @ -No Were there social determinants of health that impacted care today? How? (Homelessness, low income, unemployed, alcoholism, drug addiction, transportation, low edu. Level, literacy, decrease access to med. care, shelter, rehab)? @ -No Was there de-escalation of care discussed even if they declined (Discuss DNR or withdrawal of care, Hospice)? DNR status @ -No What co-morbidities impacted this encounter? (DM, HTN, Smoking, COPD, CAD, Cancer, CVA, ARF, Chemo, Hep., AIDS, mental health diagnosis, sleep apnea, morbid obesity)? @ -None Was patient admitted / discharged? Hospital course, mention meds given and route, prescriptions, significant lab abnormalities, going to OR and other pertinent info. @ -Based on the patient's presentation and physical exam, presents emergency department complaining of epigastric abdominal pain. We will obtain abdominal workup, screening EKG as well as screening chest x-ray. Patient was in agreement this plan. Vital signs within acceptable limits. She will be symptomatically treated with IV fluids, Zofran, Protonix, GI cocktail. Patient was in agreement this plan. EKG shows no signs of acute ischemia.Imaging unremarkable. Laboratory studies remarkable for negative test. Chronic anemia. On reevaluation, patient is feeling improved. We discussed that it is possible she has an ulcer but could also be gastritis in nature. Diagnosis is abdominal pain of unknown etiology. She expressed understanding. Strict return precautions discussed. Dietary restrictions discussed. Patient discharged home at this time. Instructed follow-up with PCP and possible a stores clerk. She was in agreement this plan. She will be given prescription for Pepcid. I will provide the patient with a prescription for Pepcid. I instructed the patient to follow up with their PCP in the next 1-3 days.. I explained that the patient should return to the emergency department if they experience any worsening symptoms. Strict return precautions were discussed with the patient. The patient expressed understanding of these instructions. I answered all questions that the patient had. The patient was discharged home in good condition with their prescriptions and follow up information. Undiagnosed new problem with uncertain prognosis? @ -No Drug Therapy requiring intensive monitoring for toxicity (Heparin, Nitro, Insulin, Cardizem)? @ -No Were any procedures done? @ -No Diagnosis/symptom? @ -Abdominal pain of unknown etiology, gastritis Acute, or Chronic, or Acute on Chronic? @ -Acute Uncomplicated (without systemic symptoms) or Complicated (systemic symptoms)? @ -Complicated Side effects of treatment? @ -None Exacerbation, Progression, or Severe Exacerbation] @ -No Poses a threat to life or bodily function? @ -Unlikely - Lab Data Result diagrams: 08/05/23 08:14 08/05/23 08:14 Lab Results 08/05/23 08/05/23 08/05/23 Range/Units 08:14 08:14 08:14 WBC 7.6 (3.8-10.6) k/uL RBC 4.61 (3.80-5.40) m/uL Hgb 11.3 L (11.4-16.0) gm/dL Hct 36.7 (34.0-46.0) % MCV 79.7 L (80.0-100.0) fL MCH 24.5 L (25.0-35.0) pg MCHC 30.7 L (31.0-37.0) g/dL RDW 15.0 (11.5-15.5) % Plt Count 210 (150-450) k/uL MPV 8.5 Neutrophils % 59 % Lymphocytes % 31 % Monocytes % 6 % Eosinophils % 2 % Basophils % 1 % Neutrophils # 4.5 (1.3-7.7) k/uL Lymphocytes # 2.3 (1.0-4.8) k/uL Monocytes # 0.4 (0-1.0) k/uL Eosinophils # 0.2 (0-0.7) k/uL Basophils # 0.0 (0-0.2) k/uL Hypochromasia Slight PT 9.7 L (10.0-12.5) sec INR 0.9 (<1.2) APTT 25.6 (22.0-30.0) sec Sodium 140 (137-145) mmol/L Potassium 4.0 (3.5-5.1) mmol/L Chloride 109 H (98-107) mmol/L Carbon Dioxide 24 (22-30) mmol/L Anion Gap 7 mmol/L BUN 17 (7-17) mg/dL Creatinine 0.66 (0.52-1.04) mg/dL Est GFR (CKD-EPI)AfAm >90 (>60 ml/min/1.73 sqM) Est GFR (CKD-EPI)NonAf >90 (>60 ml/min/1.73 sqM) Glucose 92 (74-99) mg/dL Calcium 8.6 (8.4-10.2) mg/dL Total Bilirubin 0.3 (0.2-1.3) mg/dL AST 25 (14-36) U/L ALT 21 (4-34) U/L Alkaline Phosphatase 89 (38-126) U/L Total Protein 6.8 (6.3-8.2) g/dL Albumin 3.5 (3.5-5.0) g/dL Amylase 73 (30-110) U/L Lipase 147 (23-300) U/L HCG, Qual Urine Color Urine Appearance (Clear) Urine pH (5.0-8.0) Ur Specific [place] (1.001-1.035) Urine Protein (Negative) Urine Glucose (UA) (Negative) Urine Ketones (Negative) Urine Blood (Negative) Urine Nitrite (Negative) Urine Bilirubin (Negative) Urine Urobilinogen (<2.0) mg/dL Ur Leukocyte Esterase (Negative) Urine RBC (0-5) /hpf Urine WBC (0-5) /hpf Ur Squamous Epith Cells (0-4) /hpf Urine Mucus (None) /hpf Influenza Type A (PCR) (Not Detectd) Influenza Type B (PCR) (Not Detectd) RSV (PCR) (Not Detectd) SARS-CoV-2 (PCR) (Not Detectd) 08/05/23 08/05/23 08/05/23 Range/Units 08:14 08:29 08:29 WBC (3.8-10.6) k/uL RBC (3.80-5.40) m/uL Hgb (11.4-16.0) gm/dL Hct (34.0-46.0) % MCV (80.0-100.0) fL MCH (25.0-35.0) pg MCHC (31.0-37.0) g/dL RDW (11.5-15.5) % Plt Count (150-450) k/uL MPV Neutrophils % % Lymphocytes % % Monocytes % % Eosinophils % % Basophils % % Neutrophils # (1.3-7.7) k/uL Lymphocytes # (1.0-4.8) k/uL Monocytes # (0-1.0) k/uL Eosinophils # (0-0.7) k/uL Basophils # (0-0.2) k/uL Hypochromasia PT (10.0-12.5) sec INR (<1.2) APTT (22.0-30.0) sec Sodium (137-145) mmol/L Potassium (3.5-5.1) mmol/L Chloride (98-107) mmol/L Carbon Dioxide (22-30) mmol/L Anion Gap mmol/L BUN (7-17) mg/dL Creatinine (0.52-1.04) mg/dL Est GFR (CKD-EPI)AfAm (>60 ml/min/1.73 sqM) Est GFR (CKD-EPI)NonAf (>60 ml/min/1.73 sqM) Glucose (74-99) mg/dL Calcium (8.4-10.2) mg/dL Total Bilirubin (0.2-1.3) mg/dL AST (14-36) U/L ALT (4-34) U/L Alkaline Phosphatase (38-126) U/L Total Protein (6.3-8.2) g/dL Albumin (3.5-5.0) g/dL Amylase (30-110) U/L Lipase (23-300) U/L HCG, Qual Not Detected Urine Color Colorless Urine Appearance Clear (Clear) Urine pH 6.0 (5.0-8.0) Ur Specific [place] 1.019 (1.001-1.035) Urine Protein Negative (Negative) Urine Glucose (UA) Negative (Negative) Urine Ketones Negative (Negative) Urine Blood Moderate H (Negative) Urine Nitrite Negative (Negative) Urine Bilirubin Negative (Negative) Urine Urobilinogen <2.0 (<2.0) mg/dL Ur Leukocyte Esterase Negative (Negative) Urine RBC 3 (0-5) /hpf Urine WBC <1 (0-5) /hpf Ur Squamous Epith Cells 1 (0-4) /hpf Urine Mucus Rare H (None) /hpf Influenza Type A (PCR) Not Detected (Not Detectd) Influenza Type B (PCR) Not Detected (Not Detectd) RSV (PCR) Not Detected (Not Detectd) SARS-CoV-2 (PCR) Not Detected (Not Detectd) - EKG Data -: EKG Interpreted by Me EKG Comments: 12-lead Electrocardiogram Interpretation Note EKG was reviewed and interpreted by myself. 12-lead ECG performed at 0820 is interpreted by me as revealing normal sinus rhythm at a rate of 67 beats per minute. Enigma is normal. VA interval is 152 ms, QRS durations 100 ms, QTc is 426 ms. Patient has an isolated chronic T wave inversion in lead III as well as an isolated T wave inversion in V2. This could be secondary to body habitus. No reciprocal changes present.. There were no obvious acute ST or T wave abnormalities to suggest myocardial ischemia or injury. R wave progression across the precordium was satisfactory. By my interpretation this EKG is non- diagnostic for acute ischemia.Compared with prior EKGs from September 2021. Disposition Clinical Impression: Gastritis, Abdominal pain of unknown etiology Disposition: HOME SELF-CARE Condition: Good Instructions (If sedation given, give patient instructions): Gastritis (ED), Abdominal Pain (ED) Prescriptions: Famotidine [Pepcid] 20 mg PO DAILY 14 Days #14 tablet Is patient prescribed a controlled substance at d/c from ED?: No Referrals: Ventura Whitman MD [Primary Care Provider] - 1-2 days Time of Disposition: 10:40
[2023-08-05 08:22] VITALS: RESP 18
[2023-08-05] MEDS: SODIUM CHLORIDE 0.9% 1,000 ML IV STA (08:23)
[2023-08-05] MEDS: MAG HYDROX/AL HYDROX/SIMETH 30 ML, HYOSCYAMINE ELIXIR 10 ML, LIDOCAINE VISCOUS 2% 10 ML PO STA (08:23)
[2023-08-05] MEDS: ONDANSETRON 4 MG/2 ML VIAL IVP STA (08:29)
[2023-08-05] MEDS: PANTOPRAZOLE 40 MG/10 ML VIAL IVP STA (08:31)
[2023-08-05 08:42] LABS: Basophils % (A) 1 %; Eosinophils # (A) 0.2 k/uL (0-0.7); Eosinophils % (A) 2 %; HCT 36.7 % (34.0-46.0); HGB 11.3 gm/dL (11.4-16.0); Hypochromasia Slight; Lymphocytes # (A) 2.3 k/uL (1.0-4.8); Lymphocytes % (A) 31 %; MCH 24.5 pg (25.0-35.0); MCHC 30.7 g/dL (31.0-37.0); MCV 79.7 fL (80.0-100.0); Mean Platelet Volume 8.5; Monocytes # (A) 0.4 k/uL (0-1.0); Monocytes % (A) 6 %; Neutrophils # (A) 4.5 k/uL (1.3-7.7); Neutrophils % (A) 59 %; Platelet Count 210 k/uL (150-450); RBC 4.61 m/uL (3.80-5.40); WBC 7.6 k/uL (3.8-10.6)
[2023-08-05 08:45] LABS: ALT 21 U/L (4-34); AST 25 U/L (14-36); African American GFR (CKD) >90 (>60 ml/min/1.73 sqM); Albumin 3.5 g/dL (3.5-5.0); Alkaline Phosphatase 89 U/L (38-126); Amylase 73 U/L (30-110); Anion Gap 7 mmol/L; Blood Urea Nitrogen 17 mg/dL (7-17); Calcium 8.6 mg/dL (8.4-10.2); Carbon Dioxide 24 mmol/L (22-30); Chloride 109 mmol/L (98-107); Glucose 92 mg/dL (74-99); Lipase 147 U/L (23-300); Non-African American GFR(CKD) >90 (>60 ml/min/1.73 sqM); Sodium 140 mmol/L (137-145); Total Bilirubin 0.3 mg/dL (0.2-1.3); Total Protein 6.8 g/dL (6.3-8.2)
--- NOTE | 2023-08-05 08:49 | XR ---
EXAMINATION TYPE: XR chest 2V DATE OF EXAM: 08/05/2023 8:39 AM CLINICAL INDICATION:Female, 23 years old with history of abdominal pain; [facility] COMPARISON: None TECHNIQUE: XR chest 2V Frontal and lateral views of the chest. FINDINGS: Lungs/Pleura: There is no evidence of pleural effusion, focal consolidation, or pneumothorax. Pulmonary vascularity: Unremarkable. Heart/mediastinum: Cardiomediastinal silhouette is unremarkable. Musculoskeletal: No acute osseous pathology. IMPRESSION: No acute cardiopulmonary disease/process.
[2023-08-05 08:51] LABS: INR 0.9 (<1.2); Partial Thromboplastin Time 25.6 sec (22.0-30.0); Prothrombin Time 9.7 sec (10.0-12.5)
[2023-08-05] MEDS: MORPHINE SULFATE 4 MG/ML SYRINGE IVP STA (10:04)
--- NOTE | 2023-08-05 10:20 | US ---
EXAMINATION TYPE: US gallbladder DATE OF EXAM: 08/05/2023 COMPARISON: CT 11/08/2018 CLINICAL INDICATION: Female, 23 years old with history of abd pain, n,v; Abd pain by sternum TECHNIQUE: Multiple sonographic images of the right upper quadrant are obtained. FINDINGS: EXAM MEASUREMENTS: Liver Length: 16.9 cm Gallbladder Wall: 0.3 cm CBD: 0.4 cm Right Kidney: 11.7 x 4.6 x 6.4 cm GENERAL AGENT NOTES:slightly limited due to overlying bowel gas and patient body habitus Pancreas: Obscured by bowel gas, however possible pancreatic duct seen measuring 0.3cm Liver: Limited visualization due to gas, however visualized aportions appear WNL. Gallbladder: No distinct stones seen as best visualized Evidence for sonographic Pierre's sign: No CBD: wnl Right Kidney: No hydronephrosis or masses seen as best visualized today IMPRESSION: No evidence for acute process.
[2023-08-05 10:23] LABS: Appearance,Urine Clear (Clear); Bilirubin,Urine Negative (Negative); Blood,Urine Moderate (Negative); Color,Urine Colorless; Glucose,Urine (UA) Negative (Negative); Ketones,Urine Negative (Negative); Leukocyte Esterase,Urine Negative (Negative); Mucus,Urine Rare /hpf; Nitrite,Urine Negative (Negative); Protein,Urine Negative (Negative); RBC,Urine 3 /hpf (0-5); Specific Gravity,Urine 1.019 (1.001-1.035); Squamous Epithelial Cell,Urine 1 /hpf (0-4); Urobilinogen,Urine <2.0 mg/dL (<2.0); WBC,Urine <1 /hpf (0-5)
[2023-08-05 11:17] VITALS: BP 137/82; PULSE 62; TEMP 98.2
== END 2023-08-05 11:01 | disposition home or self-care (01) ==
LOC: EC 07:33
DX: K29.70 Gastritis, unspecified, without bleeding (principal); Z88.2 Allergy status to sulfonamides; Z88.1 Allergy status to other antibiotic agents; Z91.013 Allergy to seafood; Z11.52 Encounter for screening for COVID-19
CPT/HCPCS: 36415; 93005; 80053; 82150; 83690; 85025; 85610; 85730; 81001; 84703; 87636; 71046; 76705; 99285; 96374; 96375 ×2; 96361 ×3; J2270; J2405; C9113

== ENCOUNTER → 2024-04-18 | Outpatient (CLI) | payer OTHER ==
[2024-04-18 19:05] LABS: Basophils # (A) 0.06 X 10*3/uL (0.00-0.10); Basophils % (A) 0.7 %; Eosinophils # (A) 0.14 X 10*3/uL (0.04-0.35); Eosinophils % (A) 1.5 %; HCT 40.1 % (37.2-46.3); HGB 11.8 g/dL (12.0-15.0); Lymphocytes # (A) 2.18 X 10*3/uL (0.90-5.00); Lymphocytes % (A) 23.7 %; MCH 24.6 pg (27.0-32.0); MCHC 29.4 g/dL (32.0-37.0); MCV 83.5 FL (80.0-97.0); Mean Platelet Volume 11.7 FL (9.5-12.2); Monocytes # (A) 0.89 X 10*3/uL (0.20-1.00); Monocytes % (A) 9.7 %; NRBC Per 100 WBC 0 X 10*3/uL (0.00-0.01); Neutrophils # (A) 5.91 X 10*3/uL (1.80-7.70); Neutrophils % (A) 64.2 %; Platelet Count 244 X 10*3/uL (140-440); RDW 14.3 % (11.5-14.5)
[2024-04-18 19:40] LABS: ALT 19 U/L (8-44); AST 24 U/L (13-35); Albumin/Globulin Ratio 1.33 Ratio (1.60-3.17); Alkaline Phosphatase 100 U/L (41-126); BUN/Creat Ratio 14.88 Ratio (12.00-20.00); Blood Urea Nitrogen 11.9 mg/dL (9.0-27.0); Calcium 9.2 mg/dL (8.7-10.3); Carbon Dioxide 25.4 mmol/L (21.6-31.8); Chloride 104 mmol/L (96-109); Glucose 89 mg/dL (70-110); Potassium 4.2 mmol/L (3.5-5.5); Sodium 141 mmol/L (135-145); T4, Free (Free Thyroxine) 0.81 ng/dL (0.80-1.80); Total Bilirubin <0.2 mg/dL (0.3-1.2)
== END | disposition home or self-care (01) ==
LOC: LABWHC1 14:32
PROVIDERS: ATTEND Family Medicine
DX: E66.01 Morbid (severe) obesity due to excess calories (principal); E28.2 Polycystic ovarian syndrome; R53.82 Chronic fatigue, unspecified; S60.229A Contusion of unspecified hand, initial encounter; Z68.1 Body mass index [BMI] 19.9 or less, adult
CPT/HCPCS: 36415; 80053; 84439; 84443; 85025

== ENCOUNTER 2024-05-02 15:28 | Emergency (ER) | payer OTHER ==
[2024-05-02 15:57] VITALS: TEMP 98.6
--- NOTE | 2024-05-02 15:58 | ED ---
Abdominal Pain HPI - General Source: patient, RN notes reviewed Mode of arrival: ambulatory Limitations: no limitations <Smiley Elliott - Last Filed: 05/02/24 18:45> <Whit Barton - Last Filed: 05/02/24 21:02> - General Chief Complaint: Abdominal Pain Stated Complaint: abd pain Time Seen by Provider: 05/02/24 15:57 - History of Present Illness Initial Comments: 24-year-old female presented to ER for evaluation of abdominal pain. Patient states 2 days prior she felt a sudden onset abdominal discomfort. She had a strong urge to use the bathroom and when going to the bathroom to sit on the toilet she was unable to have a bowel movement. She states the pain was like being "punched" in the abdomen. She states since then pain has been progressively worsening. Patient admits to diarrhea, nausea and vomiting. She has taken Imodium for diarrhea without relief. She denies any hematochezia or melena. She does report mild radiation of her discomfort to the left lower quadrant. She was seen in urgent care prior to arrival and sent here for evaluation to rule out appendicitis. She denies any fevers, chills, vaginal bleeding or other complaints. Patient does have a history of PCOS and endometriosis. She does state this discomfort feels different from PCOS and endometriosis. (Smiley Elliott) - Related Data Home Medications Medication Instructions Recorded Confirmed Citalopram Hydrobromide [CeleXA] 20 mg PO HS 06/22/21 06/22/21 Ibuprofen [Motrin Ib] 200 mg PO Q8H PRN 06/22/21 06/22/21 LORazepam [Ativan] 1 mg PO BID PRN 06/22/21 06/22/21 Melatonin 5 - 10 mg PO HS PRN 06/22/21 06/22/21 Multivit-Min/Folic Acid/Biotin 133.3 mcg PO DAILY 06/22/21 06/22/21 [Hair, Skin and Nails Softgel] Naproxen Sodium [Aleve] 220 mg PO DAILY PRN 06/22/21 06/22/21 Omeprazole Magnesium [PriLOSEC OTC] 20 mg PO DAILY PRN 06/22/21 06/22/21 Previous Rx's Medication Instructions Recorded Ondansetron Odt [Zofran Odt] 4 mg PO Q8HR PRN #10 tab 06/23/21 Albuterol Inhaler [Ventolin Hfa 1 puff INHALATION RT-TID #8 gm 11/04/21 Inhaler] dexAMETHasone [Decadron] 6 mg PO DAILY 4 Days #4 tablet 11/04/21 Ibuprofen [Motrin] 800 mg PO Q6HR #30 tab 01/02/22 Albuterol Inhaler [Ventolin Hfa 2 puff INHALATION Q4HR PRN #1 each 04/08/22 Inhaler] Ibuprofen [Motrin] 600 mg PO Q8HR PRN #30 tab 04/08/22 Oseltamivir [Tamiflu] 75 mg PO Q12HR #9 cap 04/08/22 Amoxic-Pot Clav 875-125Mg 1 tab PO BID 7 Days #14 tab 10/23/22 [Augmentin 875-125] predniSONE 50 mg PO DAILY 5 Days #5 tab 03/09/23 Famotidine [Pepcid] 20 mg PO DAILY 14 Days #14 tablet 08/05/23 Dicyclomine [Bentyl] 20 mg PO QID PRN #20 tablet 05/02/24 Ketorolac [Toradol] 10 mg PO Q6HR PRN #15 tab 05/02/24 Ondansetron Odt [Zofran Odt] 4 mg PO Q8HR PRN #15 tab 05/02/24 Allergies Allergy/AdvReac Type Severity Reaction Status Date / Time Sulfa (Sulfonamide Allergy Severe Anaphylaxis Verified 05/02/24 15:50 Antibiotics) Fish Containing Products Allergy Anaphylaxis Verified 05/02/24 15:50 [Fish] shellfish derived Allergy Anaphylaxis Verified 05/02/24 15:50 sulfamethoxazole Allergy Anaphylaxis Verified 05/02/24 15:50 [From Bactrim] trimethoprim [From Bactrim] Allergy Anaphylaxis Verified 05/02/24 15:50 Review of Systems ROS Other: All systems not noted in ROS Statement are negative. <Smiley Elliott - Last Filed: 05/02/24 18:45> ROS Other: All systems not noted in ROS Statement are negative. <Wiht Barton - Last Filed: 05/02/24 21:02> ROS Statement: Those systems with pertinent positive or pertinent negative responses have been documented in the HPI. Past Medical History Past Medical History: Asthma Additional Past Medical History / Comment(s): PCOS. endometriosis History of Any Multi-Drug Resistant Organisms: None Reported Past Surgical History: No Surgical Hx Reported Additional Past Surgical History / Comment(s): wisdom teeth Past Psychological History: No Psychological Hx Reported Smoking Status: Never smoker Past Alcohol Use History: Occasional Past Drug Use History: None Reported <Smiley Elliott - Last Filed: 05/02/24 18:45> General Exam Limitations: no limitations General appearance: alert, in no apparent distress Respiratory exam: Present: normal lung sounds bilaterally. Absent: respiratory distress, wheezes, rales, rhonchi, stridor Cardiovascular Exam: Present: regular rate, normal rhythm, normal heart sounds. Absent: systolic murmur, diastolic murmur, rubs, gallop, clicks GI/Abdominal exam: Present: soft, tenderness (Right lower quadrant), normal bowel sounds Neurological exam: Present: alert, oriented X3, CN II-XII intact Skin exam: Present: warm, dry, intact, normal color. Absent: rash <Smiley Elliott - Last Filed: 05/02/24 18:45> - General Exam Comments Initial Comments: Visual Physical Exam Vital signs reviewed General: Well-appearing, nontoxic, no acute distress. Head: Normocephalic, atraumatic Eyes: PERRLA, EOMI ENT: Airway patent Chest: Nonlabored breathing Skin: No visual rash, normal skin tone Neuro: Alert and oriented 3 Musculoskeletal: No gross abnormalities (Smiley Elliott) Course <Smiley Elliott - Last Filed: 05/02/24 18:45> Vital Signs 05/02/24 05/02/24 15:51 20:23 Temperature 98.6 F Pulse Rate 95 71 Respiratory 20 16 Rate Blood Pressure 119/78 105/68 O2 Sat by Pulse 99 96 Oximetry - Reevaluation(s) Reevaluation #1: 05/02/24 18:10 Patient reevaluated. Patient complaining of 6 out of 10 pain down from an 8 out of 10. Updated on laboratory results. (Smiley Elliott) Medical Decision Making - Lab Data Result diagrams: 05/02/24 16:28 05/02/24 16:28 - Radiology Data Radiology results: report reviewed, image reviewed <Smiley Elliott - Last Filed: 05/02/24 18:45> - Lab Data Result diagrams: 05/02/24 16:28 05/02/24 16:28 <Whit Barton - Last Filed: 05/02/24 21:02> - Medical Decision Making I performed the quick note portion of this chart. Electronically signed by MARIAN Salazar-Osorio Was pt. sent in by a medical professional or institution ([facility] [place], [facility], urgent care, hospital, or halfway...) When possible be specific @ -Patient sent by urgent care for evaluation of abdominal pain. Did you speak to anyone other than the patient for history (EMS, parent, family, police, friend...)? What history was obtained from this source @ -No Did you review nursing and triage notes (agree or disagree)? Why? @ -I reviewed and agree with nursing and triage notes Were old charts reviewed (outside hosp., previous admission, EMS record, old EKG, old radiological studies, urgent care reports/EKG's, halfway records)? Report findings @ -No old charts were reviewed Differential Diagnosis (chest pain, altered mental status, abdominal pain women, abdominal pain men, vaginal bleeding, weakness, fever, dyspnea, syncope, headache, dizziness, GI bleed, back pain, seizure, CVA, palpatations, mental health, musculoskeletal)? @ -Differential Abdominal Pain Women:Appendicitis, Cholecystitis, diverticulosis, ischemic bowel, pancreatitis, hepatitis, UTI, gastroenteritis, AAA, incarcerated hernia, bowel obstruction, constipation, inflammatory bowel, hepatitis, peptic ulcer disease, splenic infarction, perforated viscus, vulvitis, ovarian torsion, PID, kidney stone, placenta abruption, this is not meant to be an all-inclusive list EKG interpreted by me (3pts min.). @ -None done X-rays interpreted by me (1pt min.). @ -None done CT interpreted by me (1pt min.). @ -CT abdomen pelvis negative for acute intra-abdominal process. Appendix is seen and normal. U/S interpreted by me (1pt. min.). @ -None done What testing was considered but not performed or refused? (CT, X-rays, U/S, labs)? Why? @ -None What meds were considered but not given or refused? Why? @ -None Did you discuss the management of the patient with other professionals (professionals i.e. , MARIAN, [facility], lab, RT, psych nurse, social work job titles, history professor, teacher, homicide squad commanding officer, case briefer)? Give summary @ -No Was smoking cessation discussed for >3mins.? @ -No Was critical care preformed (if so, how long)? @ -No Were there social determinants of health that impacted care today? How? (Homelessness, low income, unemployed, alcoholism, drug addiction, tra nsportation, low edu. Level, literacy, decrease access to med. care, detention, rehab)? @ -No Was there de-escalation of care discussed even if they declined (Discuss DNR or withdrawal of care, Hospice)? DNR status @ -No What co-morbidities impacted this encounter? (DM, HTN, Smoking, COPD, CAD, Cancer, CVA, ARF, Chemo, Hep., AIDS, mental health diagnosis, sleep apnea, morbid obesity)? @ -PCOS/endometriosis Was patient admitted / discharged? Hospital course, mention meds given and route, prescriptions, significant lab abnormalities, going to OR and other pertinent info. @ -24-year-old female presented to the ER for evaluation of abdominal pain. Upon rooming, history and physical exam completed. Vitals within normal limits. Laboratory studies obtained unremarkable. Urinalysis unimpressive for this. Urine hCG negative. CT abdomen pelvis negative for acute intra-abdominal proc ess. Appendix is visualized and normal. Transvaginal ultrasound performed at that time as patient reporting 6 out of 10 pain after IV fluids and Toradol. Patient signed out to Whit Barton PA-C pending US results and dispostion. (Smiley Elliott) Case signed out to me by Smiley Elliott PA-C, at shift completion pending US results. As mentioned above, she has been experiencing right lower quadrant pain for 2 days with occasional nausea, vomiting, and diarrhea. She has not thrown up since yesterday. Lab work was unremarkable. CT scan of the abdomen and pelvis revealed no evidence of appendicitis or other acute process. Ultrasound was obtained due to persistent pain and history of PCOS and endometriosis. Ultrasound was found to be unremarkable. No evidence of ovarian torsion was identified. Findings reviewed with the patient. Symptoms well- controlled in the emergency department. Symptoms could be viral in nature or related to her endometriosis. Prescription for Bentyl, Toradol, and Zofran provided. Patient discharged home in stable condition and advised to follow-up with her PCP and [facility]. Case discussed with ED attending Dr. Fox. Return precautions reviewed in depth, the patient is instructed to return to the emergency department with any new, worsening, or concerning symptoms. Patient verbalized understanding. (Whit Barton) - Lab Data Lab Results 05/02/24 05/02/24 05/02/24 Range/Units 15:57 15:57 16:28 WBC 9.0 (3.8-10.6) k/uL RBC 4.99 (3.80-5.40) m/uL Hgb 12.7 (11.4-16.0) gm/dL Hct 39.9 (34.0-46.0) % MCV 79.9 L (80.0-100.0) fL MCH 25.5 (25.0-35.0) pg MCHC 32.0 (31.0-37.0) g/dL RDW 14.2 (11.5-15.5) % Plt Count 220 (150-450) k/uL MPV 7.8 Neutrophils % 61 % Lymphocytes % 29 % Monocytes % 6 % Eosinophils % 2 % Basophils % 0 % Neutrophils # 5.5 (1.3-7.7) k/uL Lymphocytes # 2.6 (1.0-4.8) k/uL Monocytes # 0.6 (0-1.0) k/uL Eosinophils # 0.2 (0-0.7) k/uL Basophils # 0.0 (0-0.2) k/uL Sodium (137-145) mmol/L Potassium (3.5-5.1) mmol/L Chloride (98-107) mmol/L Carbon Dioxide (22-30) mmol/L Anion Gap mmol/L BUN (7-17) mg/dL Creatinine (0.52-1.04) mg/dL Est GFR (CKD-EPI)AfAm (>60 ml/min/1.73 sqM) Est GFR (CKD-EPI)NonAf (>60 ml/min/1.73 sqM) Glucose (74-99) mg/dL Plasma Lactic Acid Mannie (0.7-2.0) mmol/L Calcium (8.4-10.2) mg/dL Total Bilirubin (0.2-1.3) mg/dL AST (14-36) U/L ALT (4-34) U/L Alkaline Phosphatase (38-126) U/L Total Protein (6.3-8.2) g/dL Albumin (3.5-5.0) g/dL Amylase (30-110) U/L Lipase (23-300) U/L Urine Color Colorless Urine Appearance Cloudy H (Clear) Urine pH 5.5 (5.0-8.0) Ur Specific [place] 1.016 (1.001-1.035) Urine Protein Negative (Negative) Urine Glucose (UA) Negative (Negative) Urine Ketones Negative (Negative) Urine Blood Large H (Negative) Urine Nitrite Negative (Negative) Urine Bilirubin Negative (Negative) Urine Urobilinogen <2.0 (<2.0) mg/dL Ur Leukocyte Esterase Negative (Negative) Urine RBC 2 (0-5) /hpf Urine WBC 1 (0-5) /hpf Ur Squamous Epith Cells 3 (0-4) /hpf Urine Bacteria Rare H (None) /hpf Urine Mucus Rare H (None) /hpf Urine HCG, Qual Not Detected (Not Detectd) 05/02/24 05/02/24 Range/Units 16:28 16:28 WBC (3.8-10.6) k/uL RBC (3.80-5.40) m/uL Hgb (11.4-16.0) gm/dL Hct (34.0-46.0) % MCV (80.0-100.0) fL MCH (25.0-35.0) pg MCHC (31.0-37.0) g/dL RDW (11.5-15.5) % Plt Count (150-450) k/uL MPV Neutrophils % % Lymphocytes % % Monocytes % % Eosinophils % % Basophils % % Neutrophils # (1.3-7.7) k/uL Lymphocytes # (1.0-4.8) k/uL Monocytes # (0-1.0) k/uL Eosinophils # (0-0.7) k/uL Basophils # (0-0.2) k/uL Sodium 139 (137-145) mmol/L Potassium 4.5 (3.5-5.1) mmol/L Chloride 103 (98-107) mmol/L Carbon Dioxide 25 (22-30) mmol/L Anion Gap 11 mmol/L BUN 16 (7-17) mg/dL Creatinine 0.75 (0.52-1.04) mg/dL Est GFR (CKD-EPI)AfAm >90 (>60 ml/min/1.73 sqM) Est GFR (CKD-EPI)NonAf >90 (>60 ml/min/1.73 sqM) Glucose 87 (74-99) mg/dL Plasma Lactic Acid Mannie 1.3 (0.7-2.0) mmol/L Calcium 9.4 (8.4-10.2) mg/dL Total Bilirubin 0.3 (0.2-1.3) mg/dL AST 32 (14-36) U/L ALT 27 (4-34) U/L Alkaline Phosphatase 94 (38-126) U/L Total Protein 8.0 (6.3-8.2) g/dL Albumin 4.4 (3.5-5.0) g/dL Amylase 70 (30-110) U/L Lipase 107 (23-300) U/L Urine Color Urine Appearance (Clear) Urine pH (5.0-8.0) Ur Specific [place] (1.001-1.035) Urine Protein (Negative) Urine Glucose (UA) (Negative) Urine Ketones (Negative) Urine Blood (Negative) Urine Nitrite (Negative) Urine Bilirubin (Negative) Urine Urobilinogen (<2.0) mg/dL Ur Leukocyte Esterase (Negative) Urine RBC (0-5) /hpf Urine WBC (0-5) /hpf Ur Squamous Epith Cells (0-4) /hpf Urine Bacteria (None) /hpf Urine Mucus (None) /hpf Urine HCG, Qual (Not Detectd) Disposition <Smiley Elliott - Last Filed: 05/02/24 18:45> Is patient prescribed a controlled substance at d/c from ED?: No Time of Disposition: 20:10 <Whit Barton - Last Filed: 05/02/24 21:02> Clinical Impression: Abdominal pain Disposition: HOME SELF-CARE Instructions (If sedation given, give patient instructions): Abdominal Pain (ED) Additional Instructions: Return to the emergency department with any new, worsening, or concerning symp toms. Take the Toradol with Tylenol as needed for pain relief. If you choose to take the Toradol, do not take any other anti-inflammatories such as ibuprofen, take one or the other. Take the Bentyl up to 4 times daily as needed to help with abdominal discomfort. Take the Zofran up to every 8 hours as needed for nausea and vomiting. Follow up with your primary care provider in 1- 2 days. Prescriptions: Dicyclomine [Bentyl] 20 mg PO QID PRN #20 tablet PRN Reason: Gi Upset Ketorolac [Toradol] 10 mg PO Q6HR PRN #15 tab PRN Reason: Pain Ondansetron Odt [Zofran Odt] 4 mg PO Q8HR PRN #15 tab PRN Reason: Nausea And Vomiting Referrals: Ventura Whitman MD [Primary Care Provider] - 1-2 days
[2024-05-02 16:36] LABS: Basophils % (A) 0 %; Eosinophils # (A) 0.2 k/uL (0-0.7); Eosinophils % (A) 2 %; HCT 39.9 % (34.0-46.0); HGB 12.7 gm/dL (11.4-16.0); Lymphocytes # (A) 2.6 k/uL (1.0-4.8); Lymphocytes % (A) 29 %; MCH 25.5 pg (25.0-35.0); MCV 79.9 fL (80.0-100.0); Mean Platelet Volume 7.8; Monocytes # (A) 0.6 k/uL (0-1.0); Monocytes % (A) 6 %; Neutrophils # (A) 5.5 k/uL (1.3-7.7); Neutrophils % (A) 61 %; Platelet Count 220 k/uL (150-450); RBC 4.99 m/uL (3.80-5.40); RDW 14.2 % (11.5-15.5)
[2024-05-02] MEDS: ONDANSETRON 4 MG/2 ML VIAL IVP STA (16:47)
[2024-05-02] MEDS: SODIUM CHLORIDE 0.9% 1,000 ML IV STA (16:48)
[2024-05-02 16:51] LABS: ALT 27 U/L (4-34); AST 32 U/L (14-36); African American GFR (CKD) >90 (>60 ml/min/1.73 sqM); Albumin 4.4 g/dL (3.5-5.0); Alkaline Phosphatase 94 U/L (38-126); Amylase 70 U/L (30-110); Anion Gap 11 mmol/L; Blood Urea Nitrogen 16 mg/dL (7-17); Calcium 9.4 mg/dL (8.4-10.2); Carbon Dioxide 25 mmol/L (22-30); Chloride 103 mmol/L (98-107); Glucose 87 mg/dL (74-99); Lipase 107 U/L (23-300); Non-African American GFR(CKD) >90 (>60 ml/min/1.73 sqM); Potassium 4.5 mmol/L (3.5-5.1); Sodium 139 mmol/L (137-145); Total Bilirubin 0.3 mg/dL (0.2-1.3)
[2024-05-02 17:04] LABS: Appearance,Urine Cloudy (Clear); Bacteria,Urine Rare /hpf; Bilirubin,Urine Negative (Negative); Blood,Urine Large (Negative); Color,Urine Colorless; Glucose,Urine (UA) Negative (Negative); Ketones,Urine Negative (Negative); Leukocyte Esterase,Urine Negative (Negative); Mucus,Urine Rare /hpf; Nitrite,Urine Negative (Negative); PH, Urine 5.5 (5.0-8.0); Protein,Urine Negative (Negative); RBC,Urine 2 /hpf (0-5); Specific Gravity,Urine 1.016 (1.001-1.035); Squamous Epithelial Cell,Urine 3 /hpf (0-4); Urobilinogen,Urine <2.0 mg/dL (<2.0); WBC,Urine 1 /hpf (0-5)
[2024-05-02] MEDS: KETOROLAC 15 MG/ML 1 ML VIAL IVP STA ×2 (17:14→19:49)
--- NOTE | 2024-05-02 17:45 | CT ---
EXAMINATION TYPE: CT abdomen pelvis w con DATE OF EXAM: 05/02/2024 5:34 PM COMPARISON: CT abdomen pelvis most recent from 11/08/2018 CLINICAL INDICATION: Female, 24 years old with history of RLQ abd pain; RLQ ABDOMINAL PAIN WITH NAUSE A AND VOMITING. TECHNIQUE: Axial CT abdomen pelvis w con;Sagittal and coronal reformats were created on a separate w orkstation. Contrast used:100ml mL of Isovue 300 with IV Contrast, (none if empty) Oral contrast used: without Oral Contrast (none if empty) CT DLP: 3906.4 mGycm, Automated exposure control for dose reduction was used. FINDINGS: LOWER CHEST: Unremarkable ABDOMEN LIVER: Unremarkable GALLBLADDER AND BILE DUCTS: Unremarkable. PANCREAS: Unremarkable. SPLEEN: Unremarkable. ADRENAL GLANDS: Unremarkable. KIDNEYS AND URETERS: No evidence of hydronephrosis or renal calculus. The ureters are unremarkable. PELVIS BLADDER: No evidence for wall thickening or mass given limitations of exam. REPRODUCTIVE: Unremarkable. ABDOMEN & PELVIS STOMACH AND BOWEL: No evidence of bowel obstruction. The appendix is visualized and within normal sloan its measuring up to 4 mm. PERITONEUM/RETROPERITONEUM: No evidence of pneumoperitoneum or free fluid. VASCULATURE: No evidence of aortic aneurysm. MUSCULOSKELETAL: No acute osseous abnormalities LYMPH NODES: No gross evidence for lymphadenopathy. SOFT TISSUE/ABDOMINAL WALL: Fat-containing umbilical hernia. IMPRESSION: No evidence for acute right lower quadrant process. The appendix is visualized and normal. No obstruc tive uropathy or renal calculus. [facility], , 05/02/2024 5:43 PM
[2024-05-02] MEDS: ACETAMINOPHEN TAB 325 MG TAB PO STA (18:17)
[2024-05-02] MEDS: MORPHINE SULFATE 4 MG/ML SYRINGE IVP STA (19:48)
--- NOTE | 2024-05-02 19:48 | US ---
EXAMINATION TYPE: US transvaginal DATE OF EXAM: 05/02/2024 COMPARISON: CT 05/02/24 CLINICAL INDICATION: Female, 24 years old with history of RLQ abd pain; Patient states RLQ abd pain. Tenderness with pressure. Hx endometriosis and ov cysts TECHNIQUE: Transvaginal (TV). Transvaginal sonographic images were medically necessary to better assess the following anatomy: Ovar ies Doppler imaging: Color Doppler Images were obtained. Spectral doppler images were obtained. FINDINGS: Date of LMP: 04/18/2024 EXAM MEASUREMENTS: Uterus: 8.2 x 4.1 x 5.5 cm Endometrial Stripe: 0.4 cm Right Ovary: 3.0 x 2.3 x 2.4 cm Left Ovary: 3.9 x 2.3 x 2.1 cm 1. Uterus: Anteverted wnl 2. Endometrium: wnl 3. Right Ovary: wnl 4. Left Ovary: There is a 1.7 x 1.5 x 1.2 cm anechoic area, likely dominant follicle. Spectral, color and waveform doppler imaging shows good arterial and venous flow within the ovaries ; there is no evidence for ovarian torsion. 5. Bilateral Adnexa: wnl 6. Posterior cul-de-sac: Trace amount of free fluid seen within likely physiologic. IMPRESSION: No sonographic evidence for acute pelvic process. [facility], , 05/02/2024 7:46 PM
[2024-05-02] MEDS: HYDROmorphone 1 MG/ML 1 ML SYRINGE IVP STA (20:14)
[2024-05-02] MEDS: DICYCLOMINE 10 MG/ML 2 ML AMP IM STA (20:16)
[2024-05-02 20:39] VITALS: BP 105/68; PULSE 71; RESP 16
== END 2024-05-02 20:23 | disposition home or self-care (01) ==
LOC: EC 15:28
DX: E28.2 Polycystic ovarian syndrome (principal); N80.9 Endometriosis, unspecified; Z88.2 Allergy status to sulfonamides; Z88.1 Allergy status to other antibiotic agents; Z91.013 Allergy to seafood
CPT/HCPCS: 36415; 80053; 82150; 83605; 83690; 85025; 81001; 81025; 93975; 76830; 74177; 99284; 96374; 96375 ×3; 96376; 96372; 96361; J2270; J0500; J2405; J1171; J1885; Q9967

== ENCOUNTER 2024-10-03 01:35 | Emergency (ER) | payer OTHER ==
[2024-10-03] MEDS: ONDANSETRON 4 MG/2 ML VIAL IVP STA (02:59)
[2024-10-03] MEDS: SODIUM CHLORIDE 0.9% 2,000 ML IV STA (03:00)
[2024-10-03 03:25] LABS: Basophils # (A) 0.07 10*3/uL (0.00-0.10); Basophils % (A) 0.5 %; Eosinophils # (A) 0.03 10*3/uL (0.04-0.35); Eosinophils % (A) 0.2 %; HCT 40.9 % (37.2-46.3); Lymphocytes # (A) 1.53 10*3/uL (0.90-5.00); Lymphocytes % (A) 10.5 %; MCH 25.3 pg (27.0-32.0); MCHC 31.8 g/dL (32.0-37.0); MCV 79.7 fL (80.0-97.0); Mean Platelet Volume 10.4 fL (9.5-12.2); Monocytes # (A) 0.83 10*3/uL (0.20-1.00); Monocytes % (A) 5.7 %; Neutrophils # (A) 12.12 10*3/uL (1.80-7.70); Neutrophils % (A) 82.8 %; Platelet Count 300 10*3/uL (140-440); RBC 5.13 10*6/uL (4.10-5.20); RDW 14.5 % (11.5-14.5); WBC 14.63 10*3/uL (4.50-10.00)
[2024-10-03 03:46] LABS: ALT 37 U/L (4-34); AST 36 U/L (14-36); African American GFR (CKD) >90 (>60 ml/min/1.73 sqM); Albumin 4.6 g/dL (3.5-5.0); Alkaline Phosphatase 117 U/L (38-126); Amylase 88 U/L (30-110); Anion Gap 17 mmol/L; Blood Urea Nitrogen 10 mg/dL (7-17); Calcium 9.7 mg/dL (8.4-10.2); Carbon Dioxide 22 mmol/L (22-30); Chloride 103 mmol/L (98-107); Glucose 120 mg/dL (74-99); Lipase 81 U/L (23-300); Non-African American GFR(CKD) >90 (>60 ml/min/1.73 sqM); Potassium 4.3 mmol/L (3.5-5.1); Sodium 142 mmol/L (137-145); Total Bilirubin 0.4 mg/dL (0.2-1.3); Total Protein 8.3 g/dL (6.3-8.2)
[2024-10-03 04:02] LABS: HCG,Qualitative Serum Not Detected
--- NOTE | 2024-10-03 04:05 | ED ---
General Adult HPI - General Chief complaint: Nausea/Vomiting/Diarrhea Stated complaint: Nausea/Vomiting Time Seen by Provider: 10/03/24 02:36 Source: patient Mode of arrival: ambulatory Limitations: no limitations - History of Present Illness Initial comments: 24-year-old female presenting with chief complaint of nausea and vomiting. Patient reports that she had multiple shots of tequila earlier today. She reports that she rarely drinks. She also admits to a headache. No abdominal pain. No urinary symptoms. No fever or chills. No diarrhea. No blood in the emesis. - Related Data Home Medications Medication Instructions Recorded Confirmed Citalopram Hydrobromide [CeleXA] 20 mg PO HS 06/22/21 06/22/21 Ibuprofen [Motrin Ib] 200 mg PO Q8H PRN 06/22/21 06/22/21 LORazepam [Ativan] 1 mg PO BID PRN 06/22/21 06/22/21 Melatonin 5 - 10 mg PO HS PRN 06/22/21 06/22/21 Multivit-Min/Folic Acid/Biotin 133.3 mcg PO DAILY 06/22/21 06/22/21 [Hair, Skin and Nails Softgel] Naproxen Sodium [Aleve] 220 mg PO DAILY PRN 06/22/21 06/22/21 Omeprazole Magnesium [PriLOSEC OTC] 20 mg PO DAILY PRN 06/22/21 06/22/21 Previous Rx's Medication Instructions Recorded Ondansetron Odt [Zofran Odt] 4 mg PO Q8HR PRN #10 tab 06/23/21 Albuterol Inhaler [Ventolin Hfa 1 puff INHALATION RT-TID #8 gm 11/04/21 Inhaler] dexAMETHasone [Decadron] 6 mg PO DAILY 4 Days #4 tablet 11/04/21 Ibuprofen [Motrin] 800 mg PO Q6HR #30 tab 01/02/22 Albuterol Inhaler [Ventolin Hfa 2 puff INHALATION Q4HR PRN #1 each 04/08/22 Inhaler] Ibuprofen [Motrin] 600 mg PO Q8HR PRN #30 tab 04/08/22 Oseltamivir [Tamiflu] 75 mg PO Q12HR #9 cap 04/08/22 Amoxic-Pot Clav 875-125Mg 1 tab PO BID 7 Days #14 tab 10/23/22 [Augmentin 875-125] predniSONE 50 mg PO DAILY 5 Days #5 tab 03/09/23 Famotidine [Pepcid] 20 mg PO DAILY 14 Days #14 tablet 08/05/23 Dicyclomine [Bentyl] 20 mg PO QID PRN #20 tablet 05/02/24 Ketorolac [Toradol] 10 mg PO Q6HR PRN #15 tab 05/02/24 Ondansetron Odt [Zofran Odt] 4 mg PO Q8HR PRN #15 tab 05/02/24 Ondansetron Odt [Zofran Odt] 4 mg PO Q8HR PRN #10 tab 05/28/24 Allergies Allergy/AdvReac Type Severity Reaction Status Date / Time Sulfa (Sulfonamide Allergy Severe Anaphylaxis Verified 10/03/24 01:53 Antibiotics) Fish Containing Products Allergy Anaphylaxis Verified 10/03/24 01:53 [Fish] shellfish derived Allergy Anaphylaxis Verified 10/03/24 01:53 sulfamethoxazole Allergy Anaphylaxis Verified 10/03/24 01:53 [From Bactrim] trimethoprim [From Bactrim] Allergy Anaphylaxis Verified 10/03/24 01:53 Review of Systems ROS Statement: Those systems with pertinent positive or pertinent negative responses have been documented in the HPI. ROS Other: All systems not noted in ROS Statement are negative. Past Medical History Past Medical History: Asthma Additional Past Medical History / Comment(s): PCOS. endometriosis History of Any Multi-Drug Resistant Organisms: MRSA Date of last positivie culture/infection: 2014 MDRO Source:: armpit/right Past Surgical History: No Surgical Hx Reported Additional Past Surgical History / Comment(s): wisdom teeth Past Psychological History: No Psychological Hx Reported Smoking Status: Never smoker Past Alcohol Use History: Occasional Past Drug Use History: None Reported General Exam Limitations: no limitations General appearance: alert, in no apparent distress Head exam: Present: atraumatic, normocephalic, normal inspection Eye exam: Present: normal appearance, EOMI Neck exam: Present: normal inspection. Absent: meningismus Respiratory exam: Present: normal lung sounds bilaterally. Absent: respiratory distress, wheezes, rales, rhonchi, stridor Cardiovascular Exam: Present: regular rate, normal rhythm, normal heart sounds. Absent: systolic murmur, diastolic murmur, rubs, gallop, clicks GI/Abdominal exam: Present: soft. Absent: distended, tenderness, guarding, rebound, rigid Neurological exam: Present: alert, oriented X3 Psychiatric exam: Present: normal affect, normal mood Skin exam: Present: warm, dry, normal color Course Vital Signs 10/03/24 10/03/24 01:53 04:21 Temperature 98.7 F 98 F Pulse Rate 93 82 Respiratory 18 17 Rate Blood Pressure 90/57 109/71 O2 Sat by Pulse 98 99 Oximetry Medical Decision Making - Medical Decision Making Was pt. sent in by a medical professional or institution ([facility] [place], BILL CLERK, urgent care, hospital, or penitentiary...) When possible be specific @ -No Did you speak to anyone other than the patient for history (EMS, parent, family, police, friend...)? What history was obtained from this source @ -No Did you review nursing and triage notes (agree or disagree)? Why? @ -I reviewed and agree with nursing and triage notes Were old charts reviewed (outside hosp., previous admission, EMS record, old EKG, old radiological studies, urgent care reports/EKG's, penitentiary records)? Report findings @ -No old charts were reviewed Differential Diagnosis (chest pain, altered mental status, abdominal pain women, abdominal pain men, vaginal bleeding, weakness, fever, dyspnea, syncope, headache, dizziness, GI bleed, back pain, seizure, CVA, palpatations, mental health, musculoskeletal)? @ -Differential includes veisalgia/excessive alcohol use, pancreatitis, , bowel obstruction, gastroenteritis, not an all-inclusive list EKG interpreted by me (3pts min.). @ -As above X-rays interpreted by me (1pt min.). @ -None done CT interpreted by me (1pt min.). @ -None done U/S interpreted by me (1pt. min.). @ -None done What testing was considered but not performed or refused? (CT, X-rays, U/S, labs)? Why? @ -None What meds were considered but not given or refused? Why? @ -None Did you discuss the management of the patient with other professionals (professionals i.e. [facility] [place], BILL CLERK, lab, RT, psych nurse, social welfare administrator, record press tender, teacher, electronic intelligence officer, therapeutic case manager)? Give summary @ -No Was smoking cessation discussed for >3mins.? @ -No Was critical care preformed (if so, how long)? @ -No Were there social determinants of health that impacted care today? How? (Homelessness, low income, unemployed, alcoholism, drug addiction, transportation, low edu. Level, literacy, decrease access to med. care, assisted, rehab)? @ -No Was there de-escalation of care discussed even if they declined (Discuss DNR or withdrawal of care, Hospice)? DNR status @ -No What co-morbidities impacted this encounter? (DM, HTN, Smoking, COPD, CAD, Cancer, CVA, ARF, Chemo, Hep., AIDS, mental health diagnosis, sleep apnea, morbid obesity)? @ -None Was patient admitted / discharged? Hospital course, mention meds given and route, prescriptions, significant lab abnormalities, going to OR and other pertinent info. @ -24-year-old female presenting with chief complaint of nausea and vomiting. She reports that she had multiple shots of tequila earlier today and she does not normally drink. Thinks that this is what is causing her symptoms. History and physical examination are conducted. Exam is benign. White count 14.63, likely reactive. Negative hCG. Amylase and lipase are WNL. On reassessment after antiemetics and IV fluids patient reports improvement in her symptoms. She is given some Toradol for headache. She would like to be discharged home. She has a ride home with her partner. Follow-up with PCP. Report back to ER with any new or worsening symptoms. Discussed return parameters and answered all questions. Patient conveyed verbal understanding and agreed to the plan. I discussed this case in detail with my attending Dr. Chung Undiagnosed new problem with uncertain prognosis? @ -No Drug Therapy requiring intensive monitoring for toxicity (Heparin, Nitro, Insulin, Cardizem)? @ -No Were any procedures done? @ -No Diagnosis/symptom? @ -Nausea and vomiting Acute, or Chronic, or Acute on Chronic? @ -Acute Uncomplicated (without systemic symptoms) or Complicated (systemic symptoms)? @ -Uncomplicated Side effects of treatment? @ -No Exacerbation, Progression, or Severe Exacerbation? @ -No Poses a threat to life or bodily function? How? (Chest pain, [place], [place], pneumonia, PE, COPD, DKA, ARF, appy, cholecystitis, CVA, Diverticulitis, Homicidal, Suicidal, threat to staff... and all critical care pts) @ -Unlikely - Lab Data Result diagrams: 10/03/24 02:30 10/03/24 02:30 Lab Results 10/03/24 10/03/24 Range/Units 02:30 02:30 WBC 14.63 H (4.50-10.00) 10*3/uL RBC 5.13 (4.10-5.20) 10*6/uL Hgb 13.0 (12.0-15.0) g/dL Hct 40.9 (37.2-46.3) % MCV 79.7 L (80.0-97.0) fL MCH 25.3 L (27.0-32.0) pg MCHC 31.8 L (32.0-37.0) g/dL Plt Count 300 (140-440) 10*3/uL MPV 10.4 (9.5-12.2) fL Immature Gran % (Auto) 0.3 % Neutrophils % 82.8 % Lymphocytes % 10.5 % Monocytes % 5.7 % Eosinophils % 0.2 % Basophils % 0.5 % Immature Gran # 0.05 H (0.00-0.04) 10*3/uL Neutrophils # 12.12 H (1.80-7.70) 10*3/uL Lymphocytes # 1.53 (0.90-5.00) 10*3/uL Monocytes # 0.83 (0.20-1.00) 10*3/uL Eosinophils # 0.03 L (0.04-0.35) 10*3/uL Basophils # 0.07 (0.00-0.10) 10*3/uL Sodium 142 (137-145) mmol/L Potassium 4.3 (3.5-5.1) mmol/L Chloride 103 (98-107) mmol/L Carbon Dioxide 22 (22-30) mmol/L Anion Gap 17 mmol/L BUN 10 (7-17) mg/dL Creatinine 0.71 (0.52-1.04) mg/dL Est GFR (CKD-EPI)AfAm >90 (>60 ml/min/1.73 sqM) Est GFR (CKD-EPI)NonAf >90 (>60 ml/min/1.73 sqM) Glucose 120 H (74-99) mg/dL Calcium 9.7 (8.4-10.2) mg/dL Total Bilirubin 0.4 (0.2-1.3) mg/dL AST 36 (14-36) U/L ALT 37 H (4-34) U/L Alkaline Phosphatase 117 (38-126) U/L Total Protein 8.3 H (6.3-8.2) g/dL Albumin 4.6 (3.5-5.0) g/dL Amylase 88 (30-110) U/L Lipase 81 (23-300) U/L HCG, Qual Not Detected Disposition Clinical Impression: Nausea & vomiting Disposition: HOME SELF-CARE Condition: Good Instructions (If sedation given, give patient instructions): Acute Nausea and Vomiting (ED) Additional Instructions: Follow-up with PCP. Report back to ER with any new or worsening symptoms. Is patient prescribed a controlled substance at d/c from ED?: No Referrals: Ventura Whitman MD [Primary Care Provider] - 1-2 days Time of Disposition: 04:05
[2024-10-03] MEDS: ONDANSETRON 4 MG ODT STARTER PACK 2 TAB BTL PO STA (04:11)
[2024-10-03] MEDS: KETOROLAC 15 MG/ML 1 ML VIAL IVP STA (04:11)
[2024-10-03] MEDS: METOCLOPRAMIDE 5 MG/ML 2 ML VIAL IVP STA (04:12)
[2024-10-03 04:23] VITALS: BP 109/71; PULSE 82; RESP 17; TEMP 98
== END 2024-10-03 04:24 | disposition home or self-care (01) ==
LOC: EC 01:35
DX: R11.2 Nausea with vomiting, unspecified (principal); Z88.1 Allergy status to other antibiotic agents; Z88.2 Allergy status to sulfonamides; Z91.013 Allergy to seafood
CPT/HCPCS: 36415; 80053; 82150; 83690; 85025; 84703; 99284; 96374; 96375 ×2; 96361; J2765; J2405; J1885; S0119